=== PATIENT | male | born 1975 | race Two or more races ===

== ENCOUNTER 2017-10-15 16:10 | Emergency (ER) | payer OTHER, BC ==
--- NOTE | 2017-10-15 16:27 | EDM.PDOC ---
ED HPI GENERAL MEDICAL PROBLEM - General Chief Complaint: Eye Problems Stated Complaint: redness to left eye work related Time Seen by Provider: 10/15/17 16:27 Source of Information: Reports: Patient - History of Present Illness INITIAL COMMENTS - FREE TEXT/NARRATIVE: HISTORY AND PHYSICAL: History of present illness: [ Patient presents with irritated left eye, he was at work today including some trash to the been little wind blew some material up in his eye is uncertain what the material was or if it was dirt, however, is irritated he has no visual change such as blurred vision light sensitivity or double vision No fever nausea vomiting chills sweats ] Review of systems: As per history of present illness and below otherwise all systems reviewed and negative. Past medical history: As per history of present illness and as reviewed below otherwise noncontributory. Surgical history: As per history of present illness and as reviewed below otherwise noncontributory. Social history: No reported history of drug or alcohol abuse. Family history: As per history of present illness and as reviewed below otherwise noncontributory. Physical exam: HEENT: Atraumatic, normocephalic, pupils reactive, negative for conjunctival pallor or scleral icterus, mucous membranes moist, throat clear, neck supple, nontender, trachea midline. Left eye sclera is injected with Wood's lamp floors in there is an abrasion at 9 :00 however no foreign body is appreciated lid retracted no foreign body no hyphema, right eye is within normal limits Lungs: Clear to auscultation, breath sounds equal bilaterally, chest nontender. Heart: S1S2, regular, negative for clicks, rubs, or JVD. Abdomen: Soft, nondistended, nontender. Negative for masses or hepatosplenomegaly. Negative for costovertebral tenderness. Pelvis: Stable nontender. Genitourinary: Deferred. Rectal: Deferred. Extremities: Atraumatic, negative for cords or calf pain. Neurovascular unremarkable. Neuro: Awake, alert, oriented. Cranial nerves II through XII unremarkable. Cerebellum unremarkable. Motor and sensory unremarkable throughout. Exam nonfocal. Diagnostics: [Wood's lamp florosine ] Therapeutics: [Gent ophthalmic] Impression: [Corneal abrasion] Definitive disposition and diagnosis as appropriate pending reevaluation and review of above. - Related Data Allergies Allergy/AdvReac Type Severity Reaction Status Date / Time No Known Allergies Allergy Verified 10/15/17 16:23 Home Meds: Home Meds Atenolol [Atenolol] 10/15/17 [History] Pravastatin [Pravachol] 10/15/17 [History] ED ROS GENERAL - Review of Systems Review Of Systems: ROS reveals no pertinent complaints other than HPI. ED EXAM GENERAL W FULL EYE - Physical Exam Exam: See Below Course - Vital Signs Last Recorded V/S: Last Vital Signs Temp 97 F 10/15/17 16:24 Pulse 73 10/15/17 16:24 Resp 20 10/15/17 16:24 BP 140/97 H 10/15/17 16:24 Pulse Ox 99 10/15/17 16:24 Departure - Departure Time of Disposition: 16:52 Disposition: Home, Self-Care 01 Condition: Good Clinical Impression: Conjunctivitis - Discharge Information Referrals: PCP,None [Primary Care Provider] - Forms: ED Department Discharge Additional Instructions: The following information is given to patients seen in the emergency department who are being discharged to home. This information is to outline your options for follow-up care. We provide all patients seen in our emergency department with a follow-up referral. The need for follow-up, as well as the timing and circumstances, are variable depending upon the specifics of your emergency department visit. If you don't have a primary care physician on staff, we will provide you with a referral. We always advise you to contact your personal physician following an emergency department visit to inform them of the circumstance of the visit and for follow-up with them and/or the need for any referrals to a consulting specialist. The emergency department will also refer you to a specialist when appropriate. This referral assures that you have the opportunity for follow-up care with a specialist. All of these measure are taken in an effort to provide you with optimal care, which includes your follow-up. Under all circumstances we always encourage you to contact your private physician who remains a resource for coordinating your care. When calling for follow-up care, please make the office aware that this follow-up is from your recent emergency room visit. If for any reason you are refused follow-up, please contact the [facility] emergency department at and asked to speak to the emergency department charge nurse.
== END 2017-10-15 17:01 | disposition home or self-care (01) ==
LOC: MW.ED 16:10
DX: H10.9 Unspecified conjunctivitis (principal); S05.02XA Injury of conjunctiva and corneal abrasion without foreign body, left eye, initial encounter; W20.8XXA Other cause of strike by thrown, projected or falling object, initial encounter
CPT/HCPCS: 99283

== ENCOUNTER 2020-08-26 20:17 | Emergency (ER) | payer BC ==
--- NOTE | 2020-08-26 20:31 | EDM.PDOC ---
ED HPI GENERAL MEDICAL PROBLEM - General Chief Complaint: Chest Pain Stated Complaint: SOB Time Seen by Provider: 08/26/20 20:21 - History of Present Illness INITIAL COMMENTS - FREE TEXT/NARRATIVE: History of present illness: [] 45-year-old began to have fever 2 days ago. Gradually since then he has had increased trouble breathing. He has fever shortness of breath and now pain in the left hip. The patient was tested for Covid and the test turned out negative. He has a history of asthma. He has fever as well as this hip pain and shortness of breath. He is bothered by cough as well. Review of systems: As per history of present illness and below otherwise all systems reviewed and negative. Past medical history: As per history of present illness and as reviewed below otherwise noncontributory. Surgical history: As per history of present illness and as reviewed below otherwise noncontributory. Social history: No reported history of drug or alcohol abuse. Family history: As per history of present illness and as reviewed below otherwise noncontributory. Physical exam: Constitutional - well developed, well-nourished and in no acute distress HEENT - normocephalic, no evidence of trauma - external nose and mouth normal - no mass in neck and no JVD - mucosae moist EYES - full EOM, PERRL, no icterus - no evidence of inflammation, injection, or drainage Respiratory - no respiratory distress, equal bilateral expansion, lungs are except for rales in the lower half of the posterior right lung field. Cardiovascular - Regular Rhythm with S1 and S2 appreciated and no murmur, gallop or rub. GI - abdomen soft without distension or organomegaly - normal bowel sounds - no guard or rebound Musculoskeletal no gross deformity of long bones or joints - no tenderness, swelling or edema Neurologic - Alert and oriented times four - CN II-XII grossly intact - motor sensory and coordination symmetrically normal Psychiatric - appropriate mood and affect with normal thought content Hematologic - No petechiae or purpura - mucosa appropriate color and sclera not pale - normal nail bed color and refill Integument - no rash or evidence of trauma - normal turgor Diagnostics: [] Therapeutics: [] Impression: [] Plan: [] Definitive disposition and diagnosis as appropriate pending reevaluation and review of above. Chest Pain Score (Numeric/FACES): 7 - Related Data Allergies Allergy/AdvReac Type Severity Reaction Status Date / Time No Known Allergies Allergy Verified 08/26/20 20:28 Home Meds: Home Meds Pravastatin [Pravachol] 10/15/17 [History] atenoloL [Atenolol] 10/15/17 [History] Amoxicillin 1,000 mg PO Q8HR #60 capsule 08/26/20 [Rx] Doxycycline [Vibra-Tabs] 100 mg PO Q12HR #20 tab 08/26/20 [Rx] Past Medical History Cardiovascular History: Reports: High Cholesterol, Hypertension - Infectious Disease History Infectious Disease History: Reports: Chicken Pox, Measles, Mumps, TB - Past Surgical History HEENT Surgical History: Reports: Other (See Below) Other HEENT Surgeries/Procedures: Right eye surgery Social & Family History - Family History Family Medical History: No Pertinent Family History ED ROS GENERAL - Review of Systems Review Of Systems: Comprehensive ROS is negative, except as noted in HPI. ED EXAM, GENERAL - Physical Exam Exam: See Below Free Text/Narrative:: My physical exam is in the HPI #1 Interpretation EKG Interpretation Comments: KG sinus tachycardia heart rate 102 [place] 83 SC interval 149 QT 439 borderline T wave abnormality but QRS ST and T otherwise essentially within normal limits. Compared to no significant change except rate impression tachycardia while receiving beta agonist for rhonchal spasm. No acute injury Course - Vital Signs Text/Narrative:: 2147 patient is not oxygen dependent. He is feels like he is breathing shallow but he has good air exchange. Patient will be sent home with his inhaler as well as antibiotics. Last Recorded V/S: Last Vital Signs Temp 38.3 C H 08/26/20 20:28 Pulse 107 H 08/26/20 21:30 Resp 16 08/26/20 21:30 BP 144/100 H 08/26/20 21:30 Pulse Ox 95 08/26/20 21:30 - Orders/Labs/Meds Orders: Active Orders 24 hr Category Date Time Status EKG Documentation Completion [RC] AM Care 08/26/20 20:42 Active RT Post Treatment Assessment [RC] Click to Edit Care 08/26/20 20:45 Active RT Pre-Treatment Assessment [RC] Click to Edit Care 08/26/20 20:45 Active Sodium Chloride 0.9% [Saline Flush] Med 08/26/20 20:42 Active 10 ml FLUSH ASDIRECTED PRN Sodium Chloride 0.9% [Saline Flush] Med 08/26/20 20:42 Active 2.5 ml FLUSH ASDIRECTED PRN cefTRIAXone [Rocephin in Dextrose,Iso-Osm 1 GM/50 ML] 1 Med 08/26/20 22:15 Active gm Premix Bag 1 bag IV ONETIME Saline Lock Insert [OM.PC] Stat Oth 08/26/20 20:42 Ordered Medication Orders Ceftriaxone Sodium/Dextrose 1 (gm/ Premix) 50 mls @ 100 mls/hr IV ONETIME ONE Stop: 08/26/20 22:44 Last Admin: 08/26/20 22:17 Dose: 100 mls/hr Documented by: BREWKRI Sodium Chloride (Saline Flush) 10 ml FLUSH ASDIRECTED PRN PRN Reason: Keep Vein Open Sodium Chloride (Saline Flush) 2.5 ml FLUSH ASDIRECTED PRN PRN Reason: Keep Vein Open Labs: Laboratory Tests 08/26/20 08/26/20 08/26/20 Range/Units 20:40 20:40 20:45 WBC 6.66 (4.0-11.0) K/uL RBC 5.11 (4.50-5.90) M/uL Hgb 14.9 (13.0-17.0) g/dL Hct 43.7 (38.0-50.0) % MCV 85.5 (80.0-98.0) fL MCH 29.2 (27.0-32.0) pg MCHC 34.1 (31.0-37.0) g/dL RDW Std Deviation 40.1 (28.0-62.0) fl RDW Coeff of Antonietta 13 (11.0-15.0) % Plt Count 160 (150-400) K/uL MPV 10.50 (7.40-12.00) fL Neut % (Auto) 80.6 H (48.0-80.0) % Lymph % (Auto) 9.3 L (16.0-40.0) % [place] % (Auto) 9.3 (0.0-15.0) % Eos % (Auto) 0.6 (0.0-7.0) % Baso % (Auto) 0.2 (0.0-1.5) % Neut # (Auto) 5.4 (1.4-5.7) K/uL Lymph # (Auto) 0.6 (0.6-2.4) K/uL [place] # (Auto) 0.6 (0.0-0.8) K/uL Eos # (Auto) 0.0 (0.0-0.7) K/uL Baso # (Auto) 0.0 (0.0-0.1) K/uL Nucleated RBC % 0.0 /100WBC Nucleated RBCs # 0 K/uL Sodium 136 (136-148) mmol/L Potassium 3.9 (3.5-5.1) mmol/L Chloride 101 (98-107) mmol/L Carbon Dioxide 23.6 (21.0-32.0) mmol/L BUN 17 (7.0-18.0) mg/dL Creatinine 1.4 H (0.8-1.3) mg/dL Est Cr Clr Drug Dosing 57.35 mL/min Estimated GFR (MDRD) 54.6 ml/min Glucose 143 H (74-106) mg/dL Calcium 9.0 (8.5-10.1) mg/dL Total Bilirubin 0.5 (0.2-1.0) mg/dL AST 58 H (15-37) IU/L ALT 56 (14-63) IU/L Alkaline Phosphatase 53 (46-116) U/L Total Protein 8.2 (6.4-8.2) g/dL Albumin 3.9 (3.4-5.0) g/dL Globulin 4.3 H (2.6-4.0) g/dL Albumin/Globulin Ratio 0.9 (0.9-1.6) Influenza Type A RNA NEGATIVE (NEGATIVE) Influenza Type B RNA NEGATIVE (NEGATIVE) SARS-CoV-2 RNA (RHIANNA) NEGATIVE (NEGATIVE) Meds: Medications Generic Name Dose Route Start Last Admin Trade Name Freq PRN Reason Stop Dose Admin Ceftriaxone Sodium/Dextrose 1 50 mls @ 100 mls/hr 08/26/20 22:15 08/26/20 22:17 gm/ Premix IV 08/26/20 22:44 100 mls/hr ONETIME ONE Administration Sodium Chloride 10 ml 08/26/20 20:42 Saline Flush FLUSH ASDIRECTED PRN Keep Vein Open Sodium Chloride 2.5 ml 08/26/20 20:42 Saline Flush FLUSH ASDIRECTED PRN Keep Vein Open Discontinued Medications Generic Name Dose Route Start Last Admin Trade Name Sea PRN Reason Stop Dose Admin Albuterol 18 gm 08/26/20 20:44 08/26/20 21:02 Ventolin Hfa INH 08/26/20 20:45 2 inhalation STAT STA Administration Doxycycline Hyclate 100 mg 08/26/20 22:07 08/26/20 22:14 Vibramycin PO 08/26/20 22:08 100 mg ONETIME ONE Administration Ceftriaxone Sodium 1 gm/ 50 mls @ 100 mls/hr 08/26/20 21:35 08/26/20 22:15 Sodium Chloride IV 08/26/20 22:04 Not Given ONETIME ONE Ceftriaxone Sodium/Dextrose Confirm 08/26/20 22:11 08/26/20 22:16 Rocephin In Dextrose,Iso-Osm 1 Gm/50 Ml Administered 08/26/20 22:12 Not Given Dose 50 mls @ as directed .ROUTE .STK-MED ONE Departure - Departure Time of Disposition: 22:41 Disposition: Home, Self-Care 01 Condition: Good Clinical Impression: Right lower lobe pneumonia - Discharge Information Prescriptions: Amoxicillin 1,000 mg PO Q8HR #60 capsule Doxycycline [Vibra-Tabs] 100 mg PO Q12HR #20 tab Instructions: Community-Acquired Pneumonia, Adult Referrals: PCP,None [Primary Care Provider] - Forms: ED Department Discharge Additional Instructions: Use the inhaler with the extension device every 4 hours as needed. 2 puffs would be your dose. If you get worse return to the emergency department. Your antibiotics were sent to the [facility] [place] pharmacy. [facility] [address] [place] [address] [id number] [address] [address] The following information is given to patients seen in the emergency department who are being discharged to home. This information is to outline your options for follow-up care. We provide all patients seen in our emergency department with a follow-up referral. The need for follow-up, as well as the timing and circumstances, are variable depending upon the specifics of your emergency department visit. If you don't have a primary care physician on staff, we will provide you with a referral. We always advise you to contact your personal physician following an emergency department visit to inform them of the circumstance of the visit and for follow-up with them and/or the need for any referrals to a consulting specialist. The emergency department will also refer you to a specialist when appropriate. This referral assures that you have the opportunity for follow-up care with a specialist. All of these measure are taken in an effort to provide you with optimal care, which includes your follow-up. Under all circumstances we always encourage you to contact your private physician who remains a resource for coordinating your care. When calling for follow-up care, please make the office aware that this follow-up is from your recent emergency room visit. If for any reason you are refused follow-up, please contact the [facility] Emergency Department at and asked to speak to the emergency department charge nurse. Sepsis Event Note (ED) - Focused Exam Vital Signs: Vital Signs Temp Pulse Resp BP Pulse Ox 08/26/20 21:30 107 H 16 144/100 H 95 08/26/20 20:28 38.3 C H 95 20 144/90 H 96 - My Orders Last 24 Hours: My Active Orders 08/26/20 20:42 EKG Documentation Completion [RC] AM Sodium Chloride 0.9% [Saline Flush] 10 ml FLUSH ASDIRECTED PRN Sodium Chloride 0.9% [Saline Flush] 2.5 ml FLUSH ASDIRECTED PRN Saline Lock Insert [OM.PC] Stat 08/26/20 20:45 RT Post Treatment Assessment [RC] Click to Edit RT Pre-Treatment Assessment [RC] Click to Edit 08/26/20 22:15 cefTRIAXone [Rocephin in Dextrose,Iso-Osm 1 GM/50 ML] 1 gm Premix Bag 1 bag IV ONETIME - Assessment/Plan Last 24 Hours: My Active Orders 08/26/20 20:42 EKG Documentation Completion [RC] AM Sodium Chloride 0.9% [Saline Flush] 10 ml FLUSH ASDIRECTED PRN Sodium Chloride 0.9% [Saline Flush] 2.5 ml FLUSH ASDIRECTED PRN Saline Lock Insert [OM.PC] Stat 08/26/20 20:45 RT Post Treatment Assessment [RC] Click to Edit RT Pre-Treatment Assessment [RC] Click to Edit 08/26/20 22:15 cefTRIAXone [Rocephin in Dextrose,Iso-Osm 1 GM/50 ML] 1 gm Premix Bag 1 bag IV ONETIME
[2020-08-26] MEDS ORDERED: Sodium Chloride 0.9% 10 ML Syringe FLUSH PRN (20:42)
[2020-08-26] MEDS ORDERED: Sodium Chloride 0.9% 2.5 ML Syringe FLUSH PRN (20:42)
[2020-08-26] MEDS ORDERED: Albuterol HFA 18 Gm Inhaler INH STA (20:44)
--- NOTE | 2020-08-26 21:11 | CR ---
HISTORY: Shortness of breath, fever, rales in the right lung base. COMPARISON: 03/09/2017. FINDINGS: A portable erect AP view of the chest was obtained at 20 56 hours. There is mild patchy infiltrate throughout the lateral portion of the right lower lung, probably an area of early pneumonia. In the appropriate clinical setting, this could be COVID-19 infection. The rest of the chest remains clear. The heart has increased in size but remains normal in size. The mediastinum is normal in appearance. The osseous structures are normal in appearance for the patient`s age. IMPRESSION: Mild patchy infiltrate throughout the lateral portion of the right lower lung, probably pneumonia. Cannot exclude COVID-19 pneumonia. Dictated by Donato Hickman MD @ Aug 26 2020 9:08PM Signed by Dr. Donato Hickman @ Aug 26 2020 9:10PM
[2020-08-26 21:14] LABS: CARBON DIOXIDE,CO2 23.6 mmol/L (21.0-32.0); POTASSIUM,K 3.9 mmol/L (3.5-5.1)
[2020-08-26 21:30] LABS: CORONAVIRUS COVID-19 NAA NEGATIVE (NEGATIVE); INFLUENZA A NAA NEGATIVE (NEGATIVE); INFLUENZA B NAA NEGATIVE (NEGATIVE)
[2020-08-26] MEDS ORDERED: cefTRIAXone 1 GM in Sodium Chloride 0.9% 50 ML IV ONE (21:35)
[2020-08-26] MEDS ORDERED: Doxycycline 100 MG Cap PO ONE (22:07)
[2020-08-26] MEDS ORDERED: cefTRIAXone 1 GM in Premix Bag 1 BAG IV ONE (22:15)
== END 2020-08-26 23:10 | disposition home or self-care (01) ==
LOC: MW.ED 20:17
DX: J18.9 Pneumonia, unspecified organism (principal); M25.552 Pain in left hip; I10 Essential (primary) hypertension; Z20.828 Contact with and (suspected) exposure to other viral communicable diseases
CPT/HCPCS: 0240U; 36415; 71045; 80053; 85025; 93005; 96365; 99285; A9270; J0696; 93010; 99283; J3535-GY

== ENCOUNTER 2020-08-28 14:12 | Inpatient (IN) | payer BC ==
[2020-08-28 15:18] LABS: CORONAVIRUS COVID-19 NAA NEGATIVE (NEGATIVE)
--- NOTE | 2020-08-28 15:35 | CR ---
HISTORY: Dyspnea COMPARISON: 08/26/2020 FINDINGS: A portable erect AP view of the chest was obtained at 1443 hours. There is marked progression of interstitial infiltrates in both lungs, more prominent on the right, worrisome for COVID-19 infection or other multifocal pneumonia. The previously seen mild patchy right lower lung infiltrate has become moderate, and has become significantly denser in the infrahilar region. New moderate patchy ground-glass infiltrate in the right superior perihilar region, with new mild streaky infiltrate in the left mid perihilar region. No sign of any pleural effusion. The heart remains normal in size. The mediastinum is normal in appearance. The osseous structures are normal in appearance for the patient`s age. IMPRESSION: Progression of right lower lung infiltrate, now moderate, with new moderate right superior perihilar and mild left mid perihilar infiltrates. Findings consistent with progressive multifocal pneumonia, consider COVID-19. Dictated by Donato Hickman MD @ Aug 28 2020 3:31PM Signed by Dr. Donato Hickman @ Aug 28 2020 3:34PM
[2020-08-28 15:49] LABS: BLOOD UREA NITROGEN,BUN 11 mg/dL (7.0-18.0); CARBON DIOXIDE,CO2 23.8 mmol/L (21.0-32.0); CHLORIDE,CL 99 mmol/L (98-107); GLUCOSE RANDOM 145 mg/dL (74-106); POTASSIUM,K 3.7 mmol/L (3.5-5.1); SODIUM,NA 138 mmol/L (136-148)
[2020-08-28 16:44] LABS: INFLUENZA A NAA NEGATIVE (NEGATIVE); INFLUENZA B NAA NEGATIVE (NEGATIVE)
[2020-08-28] MEDS ORDERED: Lactated Ringers 1,000 ML IV ONE ×2 (16:48→21:05)
[2020-08-28] MEDS ORDERED: Piperacillin/Tazobactam 3.375 GM in Sodium Chloride 0.9% 50 ML IV SCH (17:00)
--- NOTE | 2020-08-28 17:26 | PCM.HP.2 ---
H&P History of Present Illness - General Date of Service: 08/28/20 Admit Problem/Dx: Admission Diagnosis/Problem Admission Diagnosis/Problem Pneumonia - History of Present Illness Initial Comments - Free Text/Narative: 45-year-old M with PMH of HTN, HLD, Asthma comes in from respiratory clinic as a direct admit. Patient states that he started feeling unwell on Wednesday when he developed high fevers at home, he was having some trouble breathing and cough so he went to ER on 08/26, when he was diagnosed with Pneumonia based on xray, COVID was negative, he was sent home on antibiotics, but continued to get worse, he came to the clinic today and was found to be hypoxic during ambulation to low 90s. Per his his sats have been in high 80s sometimes. Work up reveled worsening pneumonia, CXR appeared to be consistent with COVID_19 but the testing was negative. Patients labs reveled he had high WBC count, vitals were significant for fever of 102, his BP was acceptable. Patient also has left hip which he says he sometimes gets due to "arthritis" but was unable to tell me which type of arthritis. The patient was tested for Covid and the test turned out negative. Patient was admitted for further management. 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 - Related Data Allergies/Adverse Reactions: Allergies Allergy/AdvReac Type Severity Reaction Status Date / Time No Known Allergies Allergy Verified 08/28/20 18:51 Home Medications: Home Meds atenoloL [Atenolol] 25 mg PO DAILY 10/15/17 [History] Amoxicillin 1,000 mg PO Q8HR #60 capsule 08/26/20 [Rx] Doxycycline [Vibra-Tabs] 100 mg PO Q12HR #20 tab 08/26/20 [Rx] Losartan [Cozaar] 50 mg PO DAILY 08/31/20 [History] Rosuvastatin Calcium 20 mg PO BEDTIME 08/31/20 [History] Past Medical History HEENT History: Reports: Impaired Vision, Sinusitis Cardiovascular History: Reports: High Cholesterol, Hypertension Respiratory History: Reports: Asthma Other Respiratory History: Asthma as a child. Musculoskeletal History: Reports: Arthritis, Gout Dermatologic History: Reports: None - Infectious Disease History Infectious Disease History: Reports: Chicken Pox, Influenza, Measles, Mumps, TB - Past Surgical History HEENT Surgical History: Reports: Other (See Below) Other HEENT Surgeries/Procedures: Right eye surgery GI Surgical History: Reports: None Endocrine Surgical History: Reports: None Neurological Surgical History: Reports: None Social & Family History - Family History Family Medical History: No Pertinent Family History - Caffeine Use Caffeine Use: Reports: None H&P Review of Systems - Review of Systems: Review Of Systems: See Below General: Reports: Fever, Chills, Weakness, Fatigue. Denies: Night Sweats Pulmonary: Reports: Shortness of Breath, Cough. Denies: Wheezing, Sputum Cardiovascular: Reports: Dyspnea on Exertion. Denies: Chest Pain, Palpitations, Orthopnea Gastrointestinal: Reports: Anorexia. Denies: Abdominal Pain, Black Stool, Bloody Stool, Constipation, Diarrhea Genitourinary: Denies: Dysuria, Frequency, Burning Musculoskeletal: Denies: Neck Pain, Shoulder Pain, Arm Pain, Back Pain Skin: Denies: Cyanosis, Jaundice, Mottled, Pallor Psychiatric: Denies: Confusion, Depression, Mood Lability, Anxiety Neurological: Denies: Confusion, Dizziness, Headache, Numbness Exam - Exam Exam: See Below - Vital Signs Vital Signs: Last Vital Signs Temp 37.3 C 08/28/20 17:02 Pulse 103 H 08/28/20 17:02 Resp 20 08/28/20 17:02 BP 143/79 H 08/28/20 17:02 Pulse Ox 97 08/28/20 17:02 - Exam Quality Assessment: Supplemental Oxygen General: Alert, Oriented, Moderate Distress Neck: Supple Lungs: Decreased Breath Sounds, Crackles Cardiovascular: Regular Rate, Regular Rhythm, Normal S1, Normal S2 GI/Abdominal Exam: Normal Bowel Sounds, Soft, Non-Tender Back Exam: Normal Inspection, Decreased Range of Motion, Other (left hip discomfort upon flexion ) Extremities: Normal Inspection, Normal Range of Motion, Non-Tender, No Pedal E jimmy Skin: Warm, Dry - Patient Data Lab Results Last 24 hrs: Laboratory Results - last 24 hr 08/28/20 08/28/20 08/28/20 Range/Units 14:10 14:50 14:50 WBC 14.45 H (4.0-11.0) K/uL RBC 4.82 (4.50-5.90) M/uL Hgb 13.6 (13.0-17.0) g/dL Hct 41.4 (38.0-50.0) % MCV 85.9 (80.0-98.0) fL MCH 28.2 (27.0-32.0) pg MCHC 32.9 (31.0-37.0) g/dL RDW Std Deviation 40.9 (28.0-62.0) fl RDW Coeff of Antonietta 13 (11.0-15.0) % Plt Count 193 (150-400) K/uL MPV 10.30 (7.40-12.00) fL Neut % (Auto) 90.3 H (48.0-80.0) % Lymph % (Auto) 5.1 L (16.0-40.0) % Hand % (Auto) 4.5 (0.0-15.0) % Eos % (Auto) 0.0 (0.0-7.0) % Baso % (Auto) 0.1 (0.0-1.5) % Neut # (Auto) 13.1 H (1.4-5.7) K/uL Lymph # (Auto) 0.7 (0.6-2.4) K/uL Hand # (Auto) 0.7 (0.0-0.8) K/uL Eos # (Auto) 0.0 (0.0-0.7) K/uL Baso # (Auto) 0.0 (0.0-0.1) K/uL Nucleated RBC % 0.0 /100WBC Nucleated RBCs # 0 K/uL D-Dimer, Quantitative (0.0-0.50) mg/L FEU Lactate (0.20-2.00) mmol/L Sodium 138 (136-148) mmol/L Potassium 3.7 (3.5-5.1) mmol/L Chloride 99 (98-107) mmol/L Carbon Dioxide 23.8 (21.0-32.0) mmol/L BUN 11 (7.0-18.0) mg/dL Creatinine 1.3 (0.8-1.3) mg/dL Est Cr Clr Drug Dosing TNP Estimated GFR (MDRD) 59.4 ml/min Glucose 145 H (74-106) mg/dL Calcium 9.2 (8.5-10.1) mg/dL Total Bilirubin 0.6 (0.2-1.0) mg/dL AST 58 H (15-37) IU/L ALT 67 H (14-63) IU/L Alkaline Phosphatase 57 (46-116) U/L Total Protein 7.6 (6.4-8.2) g/dL Albumin 3.7 (3.4-5.0) g/dL Globulin 3.9 (2.6-4.0) g/dL Albumin/Globulin Ratio 0.9 (0.9-1.6) Influenza Type A RNA NEGATIVE (NEGATIVE) Influenza Type B RNA NEGATIVE (NEGATIVE) SARS-CoV-2 RNA (RHIANNA) NEGATIVE (NEGATIVE) 08/28/20 08/28/20 Range/Units 14:50 14:50 WBC (4.0-11.0) K/uL RBC (4.50-5.90) M/uL Hgb (13.0-17.0) g/dL Hct (38.0-50.0) % MCV (80.0-98.0) fL MCH (27.0-32.0) pg MCHC (31.0-37.0) g/dL RDW Std Deviation (28.0-62.0) fl RDW Coeff of Antonietta (11.0-15.0) % Plt Count (150-400) K/uL MPV (7.40-12.00) fL Neut % (Auto) (48.0-80.0) % Lymph % (Auto) (16.0-40.0) % Hand % (Auto) (0.0-15.0) % Eos % (Auto) (0.0-7.0) % Baso % (Auto) (0.0-1.5) % Neut # (Auto) (1.4-5.7) K/uL Lymph # (Auto) (0.6-2.4) K/uL Hand # (Auto) (0.0-0.8) K/uL Eos # (Auto) (0.0-0.7) K/uL Baso # (Auto) (0.0-0.1) K/uL Nucleated RBC % /100WBC Nucleated RBCs # K/uL D-Dimer, Quantitative 1.06 H (0.0-0.50) mg/L FEU Lactate 1.8 (0.20-2.00) mmol/L Sodium (136-148) mmol/L Potassium (3.5-5.1) mmol/L Chloride (98-107) mmol/L Carbon Dioxide (21.0-32.0) mmol/L BUN (7.0-18.0) mg/dL Creatinine (0.8-1.3) mg/dL Est Cr Clr Drug Dosing Estimated GFR (MDRD) ml/min Glucose (74-106) mg/dL Calcium (8.5-10.1) mg/dL Total Bilirubin (0.2-1.0) mg/dL AST (15-37) IU/L ALT (14-63) IU/L Alkaline Phosphatase (46-116) U/L Total Protein (6.4-8.2) g/dL Albumin (3.4-5.0) g/dL Globulin (2.6-4.0) g/dL Albumin/Globulin Ratio (0.9-1.6) Influenza Type A RNA (NEGATIVE) Influenza Type B RNA (NEGATIVE) SARS-CoV-2 RNA (RHIANNA) (NEGATIVE) Result Diagrams: 09/01/20 06:15 09/01/20 06:15 Sepsis Event Note - Focused Exam Vital Signs: Vital Signs Temp Pulse Resp BP Pulse Ox 08/28/20 17:02 37.3 C 103 H 20 143/79 H 97 - Problem List (1) Hypoxia SNOMED Code(s): 861286994 ICD Code: R09.02 - HYPOXEMIA Status: Acute Current Visit: Yes (2) Pneumonia SNOMED Code(s): 740651873 ICD Code: J18.9 - PNEUMONIA, UNSPECIFIED ORGANISM Status: Acute Current Visit: Yes (3) Sepsis SNOMED Code(s): 44219013 ICD Code: A41.9 - SEPSIS, UNSPECIFIED ORGANISM Status: Acute Current Visit: No Problem List Initiated/Reviewed/Updated: Yes Orders Last 24hrs: Active Orders 24 hr Category Date Time Status Admission Status [Patient Status] [ADT] Routine ADT 08/28/20 17:23 Active Oxygen Therapy [RC] PRN Care 08/28/20 16:48 Active RT Post Treatment Assessment [RC] Click to Edit Care 08/28/20 16:53 Active RT Pre-Treatment Assessment [RC] Click to Edit Care 08/28/20 16:53 Active Telemetry Monitoring [Cardiac Monitoring] [RC] . Care 08/28/20 17:06 Active DIRECTED VTE/DVT Education [RC] PER UNIT ROUTINE Care 08/28/20 16:48 Active Vital Signs [RC] Q4H Care 08/28/20 16:48 Active Regular Diet [DIET] Diet 08/28/20 Dinner Active CBC WITH AUTO DIFF [HEME] AM Lab 08/29/20 05:11 Ordered CMP [COMPREHENSIVE METABOLIC PN,CMP] [CHEM] AM Lab 08/29/20 05:11 Ordered Acetaminophen [TylenoL] Med 08/28/20 16:50 Active 650 mg PO Q4H PRN Albuterol/Ipratropium [Combivent Respimat] Med 08/28/20 18:00 Active See Dose Instructions INH BID Enoxaparin [Lovenox] Med 08/28/20 18:00 Active 40 mg SUBCUT BID Lactated Ringers [Ringers, Lactated] 1,000 ml Med 08/28/20 16:48 Active IV BOLUS Pharmacy to Dose - Vancomycin Med 08/28/20 17:00 Pending 1 dose .XX ASDIRECTED Piperacillin/Tazobactam [Piperacil-Tazobact] 3.375 gm Med 08/28/20 17:00 Active Sodium Chloride 0.9% [Normal Saline] 50 ml IV Q8H Code Status [Resuscitation Status] Routine Resus Stat 08/28/20 17:22 Ordered Medication Orders Acetaminophen (Tylenol) 650 mg PO Q4H PRN PRN Reason: Pain/Fever Albuterol/Ipratropium (Combivent Respimat) 0 gm INH BID [facility] Enoxaparin Sodium (Lovenox) 40 mg SUBCUT BID [facility] Lactated Ringer's (Ringers, Lactated) 1,000 mls @ 999 mls/hr IV BOLUS ONE Stop: 08/28/20 17:48 Piperacillin Sod/Tazobactam (Sod 3.375 gm/ Sodium Chloride) 50 mls @ 100 mls/hr IV Q8H [facility] Vancomycin HCl (Pharmacy To Dose - Vancomycin) 1 dose .XX ASDIRECTED [facility] Assessment/Plan Comment:: 45 y/o M admitted for cough , SOB CXR significant for atypical pneumonia likely COVID -19 false negative, currently on 2lts sating 93% Will start broad spectrum antibiotics in light of sepsis obtain blood cultures, f/u on lactate 1 lt bolus of LR given have to be careful with fluids in light of possible COVID, for now will start on maintain fluids till sepsis resolves start dexamethasone, Remdesivir start Combivent start Tessalon pearls start Lovenox BID monitor and replete electrolytes
[2020-08-28] MEDS: Enoxaparin 40 MG/0.4 ML Syringe SUBCUT SCH ×2 (18:05→20:11)
[2020-08-28] MEDS ORDERED: REMDESIVIR 200 MG in Sodium Chloride 0.9% 250 ML IV ONE (19:47)
[2020-08-28] MEDS ORDERED: Azithromycin 500 MG in Sodium Chloride 0.9% 250 ML IV SCH (20:00)
[2020-08-28] MEDS: Acetaminophen 325 MG Tab PO PRN (20:11)
[2020-08-28] MEDS: Albuterol/Ipratropium 4 GM Inhalation Spray INH SCH ×2 (20:11→20:31)
[2020-08-28] MEDS: Piperacillin/Tazobactam 3.375 GM in Sodium Chloride 0.9% 50 ML IV SCH (20:12)
[2020-08-28] MEDS ORDERED: Enoxaparin 40 MG/0.4 ML Syringe SUBCUT SCH (21:00)
[2020-08-28] MEDS ORDERED: Albuterol/Ipratropium 4 GM Inhalation Spray INH PRN (21:03)
[2020-08-28] MEDS ORDERED: Lactated Ringers 1,000 ML IV SCH (21:15)
[2020-08-28] MEDS: Codeine/guaiFENesin 10-100 MG/5 ML Syrup 5 ML Cup PO PRN (22:15)
[2020-08-28] MEDS: Dexamethasone 4 MG Tab PO SCH (22:18)
[2020-08-29] MEDS: Acetaminophen 325 MG Tab PO PRN ×2 (00:47→17:16)
[2020-08-29] MEDS: Benzonatate 100 MG Cap PO PRN ×2 (00:47→20:03)
[2020-08-29] MEDS: Piperacillin/Tazobactam 3.375 GM in Sodium Chloride 0.9% 50 ML IV SCH ×3 (04:55→20:01)
[2020-08-29 06:38] LABS: CARBON DIOXIDE,CO2 21.6 mmol/L (21.0-32.0); POTASSIUM,K 3.6 mmol/L (3.5-5.1)
[2020-08-29] MEDS: Enoxaparin 40 MG/0.4 ML Syringe SUBCUT SCH ×2 (08:14→20:02)
[2020-08-29] MEDS: Codeine/guaiFENesin 10-100 MG/5 ML Syrup 5 ML Cup PO PRN (08:14)
[2020-08-29] MEDS: Albuterol/Ipratropium 4 GM Inhalation Spray INH SCH ×2 (08:22→20:03)
--- NOTE | 2020-08-29 11:37 | PCM.PN ---
- General Info Date of Service: 08/29/20 Subjective Update: Patient states shortness of breath with exertion, and chills. Patient denies fever, abdominal pain, diarrhea. Patient states that he would like convalescent plasma therapy. - Review of Systems General: Reports: Chills. Denies: Fever Pulmonary: Reports: Shortness of Breath, Cough Cardiovascular: Denies: Chest Pain, Palpitations Gastrointestinal: Denies: Abdominal Pain, Nausea, Vomiting Neurological: Denies: Confusion, Dizziness, Headache - Patient Data Vitals - Most Recent: Last Vital Signs Temp 98.2 F 08/29/20 07:51 Pulse 85 08/29/20 07:51 Resp 18 08/29/20 07:51 BP 101/59 L 08/29/20 07:51 Pulse Ox 92 L 08/29/20 07:51 Weight - Most Recent: 165 lb 9.074 oz I&O - Last 24 Hours: Intake & Output 08/28/20 08/29/20 08/29/20 22:59 06:59 14:59 Intake Total 3650 Output Total 400 Balance 3250 Lab Results Last 24 Hours: Laboratory Results - last 24 hr 08/28/20 08/28/20 08/28/20 Range/Units 14:10 14:50 14:50 WBC 14.45 H (4.0-11.0) K/uL RBC 4.82 (4.50-5.90) M/uL Hgb 13.6 (13.0-17.0) g/dL Hct 41.4 (38.0-50.0) % MCV 85.9 (80.0-98.0) fL MCH 28.2 (27.0-32.0) pg MCHC 32.9 (31.0-37.0) g/dL RDW Std Deviation 40.9 (28.0-62.0) fl RDW Coeff of Antonietta 13 (11.0-15.0) % Plt Count 193 (150-400) K/uL MPV 10.30 (7.40-12.00) fL Neut % (Auto) 90.3 H (48.0-80.0) % Lymph % (Auto) 5.1 L (16.0-40.0) % [place] % (Auto) 4.5 (0.0-15.0) % Eos % (Auto) 0.0 (0.0-7.0) % Baso % (Auto) 0.1 (0.0-1.5) % Neut # (Auto) 13.1 H (1.4-5.7) K/uL Lymph # (Auto) 0.7 (0.6-2.4) K/uL [place] # (Auto) 0.7 (0.0-0.8) K/uL Eos # (Auto) 0.0 (0.0-0.7) K/uL Baso # (Auto) 0.0 (0.0-0.1) K/uL Nucleated RBC % 0.0 /100WBC Nucleated RBCs # 0 K/uL D-Dimer, Quantitative (0.0-0.50) mg/L FEU Lactate (0.20-2.00) mmol/L Sodium 138 (136-148) mmol/L Potassium 3.7 (3.5-5.1) mmol/L Chloride 99 (98-107) mmol/L Carbon Dioxide 23.8 (21.0-32.0) mmol/L BUN 11 (7.0-18.0) mg/dL Creatinine 1.3 (0.8-1.3) mg/dL Est Cr Clr Drug Dosing TNP Estimated GFR (MDRD) 59.4 ml/min Glucose 145 H (74-106) mg/dL Calcium 9.2 (8.5-10.1) mg/dL Total Bilirubin 0.6 (0.2-1.0) mg/dL AST 58 H (15-37) IU/L ALT 67 H (14-63) IU/L Alkaline Phosphatase 57 (46-116) U/L Total Protein 7.6 (6.4-8.2) g/dL Albumin 3.7 (3.4-5.0) g/dL Globulin 3.9 (2.6-4.0) g/dL Albumin/Globulin Ratio 0.9 (0.9-1.6) Influenza Type A RNA NEGATIVE (NEGATIVE) Influenza Type B RNA NEGATIVE (NEGATIVE) SARS-CoV-2 RNA (RHIANNA) NEGATIVE (NEGATIVE) 08/28/20 08/28/20 08/28/20 Range/Units 14:50 14:50 18:07 WBC (4.0-11.0) K/uL RBC (4.50-5.90) M/uL Hgb (13.0-17.0) g/dL Hct (38.0-50.0) % MCV (80.0-98.0) fL MCH (27.0-32.0) pg MCHC (31.0-37.0) g/dL RDW Std Deviation (28.0-62.0) fl RDW Coeff of Antonietta (11.0-15.0) % Plt Count (150-400) K/uL MPV (7.40-12.00) fL Neut % (Auto) (48.0-80.0) % Lymph % (Auto) (16.0-40.0) % [place] % (Auto) (0.0-15.0) % Eos % (Auto) (0.0-7.0) % Baso % (Auto) (0.0-1.5) % Neut # (Auto) (1.4-5.7) K/uL Lymph # (Auto) (0.6-2.4) K/uL [place] # (Auto) (0.0-0.8) K/uL Eos # (Auto) (0.0-0.7) K/uL Baso # (Auto) (0.0-0.1) K/uL Nucleated RBC % /100WBC Nucleated RBCs # K/uL D-Dimer, Quantitative 1.06 H (0.0-0.50) mg/L FEU Lactate 1.8 1.3 (0.20-2.00) mmol/L Sodium (136-148) mmol/L Potassium (3.5-5.1) mmol/L Chloride (98-107) mmol/L Carbon Dioxide (21.0-32.0) mmol/L BUN (7.0-18.0) mg/dL Creatinine (0.8-1.3) mg/dL Est Cr Clr Drug Dosing Estimated GFR (MDRD) ml/min Glucose (74-106) mg/dL Calcium (8.5-10.1) mg/dL Total Bilirubin (0.2-1.0) mg/dL AST (15-37) IU/L ALT (14-63) IU/L Alkaline Phosphatase (46-116) U/L Total Protein (6.4-8.2) g/dL Albumin (3.4-5.0) g/dL Globulin (2.6-4.0) g/dL Albumin/Globulin Ratio (0.9-1.6) Influenza Type A RNA (NEGATIVE) Influenza Type B RNA (NEGATIVE) SARS-CoV-2 RNA (RHIANNA) (NEGATIVE) 08/29/20 08/29/20 Range/Units 05:44 05:44 WBC 15.55 H (4.0-11.0) K/uL RBC 4.31 L (4.50-5.90) M/uL Hgb 12.1 L (13.0-17.0) g/dL Hct 37.0 L (38.0-50.0) % MCV 85.8 (80.0-98.0) fL MCH 28.1 (27.0-32.0) pg MCHC 32.7 (31.0-37.0) g/dL RDW Std Deviation 41.2 (28.0-62.0) fl RDW Coeff of Antonietta 13 (11.0-15.0) % Plt Count 200 (150-400) K/uL MPV 10.90 (7.40-12.00) fL Neut % (Auto) 92.7 H (48.0-80.0) % Lymph % (Auto) 5.1 L (16.0-40.0) % [place] % (Auto) 2.1 (0.0-15.0) % Eos % (Auto) 0.0 (0.0-7.0) % Baso % (Auto) 0.1 (0.0-1.5) % Neut # (Auto) 14.4 H (1.4-5.7) K/uL Lymph # (Auto) 0.8 (0.6-2.4) K/uL [place] # (Auto) 0.3 (0.0-0.8) K/uL Eos # (Auto) 0.0 (0.0-0.7) K/uL Baso # (Auto) 0.0 (0.0-0.1) K/uL Nucleated RBC % 0.0 /100WBC Nucleated RBCs # 0 K/uL D-Dimer, Quantitative (0.0-0.50) mg/L FEU Lactate (0.20-2.00) mmol/L Sodium 137 (136-148) mmol/L Potassium 3.6 (3.5-5.1) mmol/L Chloride 101 (98-107) mmol/L Carbon Dioxide 21.6 (21.0-32.0) mmol/L BUN 13 (7.0-18.0) mg/dL Creatinine 1.4 H (0.8-1.3) mg/dL Est Cr Clr Drug Dosing 57.35 Estimated GFR (MDRD) 54.6 ml/min Glucose 190 H (74-106) mg/dL Calcium 8.6 (8.5-10.1) mg/dL Total Bilirubin 0.5 (0.2-1.0) mg/dL AST 52 H (15-37) IU/L ALT 50 (14-63) IU/L Alkaline Phosphatase 51 (46-116) U/L Total Protein 7.0 (6.4-8.2) g/dL Albumin 2.8 L (3.4-5.0) g/dL Globulin 4.2 H (2.6-4.0) g/dL Albumin/Globulin Ratio 0.7 L (0.9-1.6) Influenza Type A RNA (NEGATIVE) Influenza Type B RNA (NEGATIVE) SARS-CoV-2 RNA (RHIANNA) (NEGATIVE) Med Orders - Current: Current Medications Acetaminophen (Tylenol) 650 mg PO Q4H PRN PRN Reason: Pain/Fever Last Admin: 08/29/20 00:47 Dose: 650 mg Documented by: Albuterol/Ipratropium (Combivent Respimat) 0 gm INH BID [facility] Last Admin: 08/29/20 08:22 Dose: 1 puff Documented by: Azithromycin (Zithromax) 250 mg PO Q24H [facility] Benzonatate (Tessalon Perles) 100 mg PO TID PRN PRN Reason: Cough Last Admin: 08/29/20 00:47 Dose: 100 mg Documented by: Dexamethasone (Dexamethasone) 6 mg PO DAILY@1800 [facility] Last Admin: 08/28/20 22:18 Dose: 6 mg Documented by: Enoxaparin Sodium (Lovenox) 40 mg SUBCUT BID [facility] Last Admin: 08/29/20 08:14 Dose: 40 mg Documented by: Guaifenesin/Codeine Phosphate (Robitussin Ac) 5 ml PO Q6H PRN PRN Reason: Cough Last Admin: 08/29/20 08:14 Dose: 5 ml Documented by: Piperacillin Sod/Tazobactam (Sod 3.375 gm/ Sodium Chloride) 50 mls @ 100 mls/hr IV Q8H [facility] Last Admin: 08/29/20 04:55 Dose: 100 mls/hr Documented by: Remdesivir 100 mg/ Sodium (Chloride) 100 mls @ 100 mls/hr IV Q24H [facility] Stop: 09/01/20 18:59 Azithromycin 500 mg/ Sodium (Chloride) 250 mls @ 250 mls/hr IV ONETIME [facility] Lactated Ringer's (Ringers, Lactated) 1,000 mls @ 125 mls/hr IV ASDIRECTED [facility] Last Admin: 08/28/20 22:19 Dose: 125 mls/hr Documented by: Vancomycin HCl 1 gm/ Sodium (Chloride) 250 mls @ 166 mls/hr IV Q12H [facility] Last Admin: 08/29/20 08:13 Dose: 166 mls/hr Documented by: Vancomycin HCl (Pharmacy To Dose - Vancomycin) 1 dose .XX ASDIRECTED [facility] Discontinued Medications Albuterol/Ipratropium (Combivent Respimat) 0 gm INH Q4H PRN PRN Reason: Dyspnea Enoxaparin Sodium (Lovenox) 40 mg SUBCUT BID [facility] Lactated Ringer's (Ringers, Lactated) 1,000 mls @ 999 mls/hr IV BOLUS ONE Stop: 08/28/20 17:48 Last Admin: 08/28/20 18:04 Dose: 999 mls/hr Documented by: Piperacillin Sod/Tazobactam (Sod 3.375 gm/ Sodium Chloride) 50 mls @ 100 mls/hr IV Q8H [facility] Last Admin: 08/28/20 19:09 Dose: Not Given Documented by: Vancomycin HCl 1.5 gm/ Premix 300 mls @ 300 mls/hr IV ONETIME ONE Stop: 08/28/20 20:14 Last Admin: 08/28/20 20:13 Dose: 300 mls/hr Documented by: Remdesivir 200 mg/ Sodium (Chloride) 250 mls @ 250 mls/hr IV ONETIME ONE Stop: 08/28/20 19:48 Last Admin: 08/28/20 22:18 Dose: 250 mls/hr Documented by: Lactated Ringer's (Ringers, Lactated) 1,000 mls @ 999 mls/hr IV .BOLUS ONE Stop: 08/28/20 22:05 Last Admin: 08/28/20 21:44 Dose: 999 mls/hr Documented by: - Exam Quality Assessment: Supplemental Oxygen General: Alert, Oriented Lungs: Clear to Auscultation, Normal Respiratory Effort Cardiovascular: Regular Rate, Regular Rhythm GI/Abdominal Exam: Normal Bowel Sounds, Soft, Non-Tender Extremities: No Pedal Edema Psy/Mental Status: Alert Sepsis Event Note - Evaluation Sepsis Screening Result: No Definite Risk - Focused Exam Vital Signs: Vital Signs Temp Temp Pulse Resp BP BP Pulse Ox 08/29/20 07:51 98.2 F 85 18 101/59 L 92 L 08/29/20 04:00 97.1 F 98 20 131/84 93 L 08/29/20 01:59 97.5 F 08/29/20 00:47 102.5 F H - Problem List & Annotations (1) Pneumonia SNOMED Code(s): 549694481 Code(s): J18.9 - PNEUMONIA, UNSPECIFIED ORGANISM Status: Acute Current Visit: Yes (2) Sepsis SNOMED Code(s): 78128049 Code(s): A41.9 - SEPSIS, UNSPECIFIED ORGANISM Status: Acute Current Visit: No - Problem List Review Problem List Initiated/Reviewed/Updated: Yes - My Orders Last 24 Hours: My Active Orders 08/28/20 16:48 Oxygen Therapy [RC] PRN VTE/DVT Education [RC] Q12H Vital Signs [RC] Q4H 08/28/20 16:50 Acetaminophen [TylenoL] 650 mg PO Q4H PRN 08/28/20 16:53 RT Post Treatment Assessment [RC] Click to Edit RT Pre-Treatment Assessment [RC] Click to Edit 08/28/20 17:00 Pharmacy to Dose - Vancomycin 1 dose .XX ASDIRECTED 08/28/20 17:06 Telemetry Monitoring [Cardiac Monitoring] [RC] Q8H 08/28/20 17:22 Code Status [Resuscitation Status] Routine 08/28/20 18:00 Albuterol/Ipratropium [Combivent Respimat] See Dose Instructions INH BID Enoxaparin [Lovenox] 40 mg SUBCUT BID 08/28/20 20:00 Piperacillin/Tazobactam [Piperacil-Tazobact] 3.375 gm Sodium Chloride 0.9% [Normal Saline] 50 ml IV Q8H 08/29/20 08:00 Vancomycin [Vancocin] 1 gm Sodium Chloride 0.9% [Normal Saline (AdvBag)] 250 ml IV Q12H - Plan Plan:: COVID-19 Testing was negative but chest x-ray findings are suggestive for Covid infection. Patient has known Covid exposure to individuals at work. Patient is currently requiring 4 L oxygen support nasal cannula. Remdesivir, dexamethasone, Combivent, Lovenox twice daily, vancomycin, Zosyn, azithromycin antibiotics started due to atypical chest x-ray presentation and sepsis on presentation, Dhruv Harrington. Blood cultures pending 2 units Convalescent plasma to be administered. Patient does have a negative COVID-19 test but patient states that he has been exposed to multiple Covid positive individuals at his work. Patient consents to convalescent plasma, authorization form signed.
[2020-08-29] MEDS: REMDESIVIR 100 MG in Sodium Chloride 0.9% 100 ML IV SCH (17:16)
[2020-08-29] MEDS: Dexamethasone 4 MG Tab PO SCH (17:19)
[2020-08-29] MEDS: Azithromycin 250 MG Tab PO SCH (17:20)
[2020-08-29] MEDS: Loperamide 2 MG Cap PO PRN (18:57)
[2020-08-30] MEDS: Piperacillin/Tazobactam 3.375 GM in Sodium Chloride 0.9% 50 ML IV SCH ×3 (05:29→20:36)
[2020-08-30] MEDS: Enoxaparin 40 MG/0.4 ML Syringe SUBCUT SCH ×2 (08:47→21:49)
[2020-08-30] MEDS: Atenolol 25 MG Tab PO SCH (08:48)
[2020-08-30] MEDS: Albuterol/Ipratropium 4 GM Inhalation Spray INH SCH ×2 (08:56→21:47)
[2020-08-30 09:08] LABS: BLOOD UREA NITROGEN,BUN 21 mg/dL (7.0-18.0); CARBON DIOXIDE,CO2 24.2 mmol/L (21.0-32.0); CHLORIDE,CL 104 mmol/L (98-107); GLUCOSE RANDOM 161 mg/dL (74-106); POTASSIUM,K 3.8 mmol/L (3.5-5.1); SODIUM,NA 138 mmol/L (136-148)
[2020-08-30] MEDS: Loperamide 2 MG Cap PO PRN (14:18)
--- NOTE | 2020-08-30 15:03 | PCM.PN ---
- General Info Date of Service: 08/30/20 Subjective Update: Patient still states shortness of breath with exertion. Patient states that he does feel better with rest, denies chills denies nausea denies abdominal pain. Patient states diarrhea is much improved since previously. Patient did have a positive Covid test overnight and states no concerns with the convalescent plasma he received yesterday. - Review of Systems General: Denies: Fever, Chills Pulmonary: Reports: Shortness of Breath, Cough Cardiovascular: Reports: Dyspnea on Exertion. Denies: Chest Pain, Palpitations Gastrointestinal: Reports: Decreased Appetite. Denies: Abdominal Pain, Nausea, Vomiting Neurological: Denies: Confusion, Dizziness, Headache - Patient Data Vitals - Most Recent: Last Vital Signs Temp 98.6 F 08/30/20 09:00 Pulse 80 08/30/20 09:00 Resp 28 H 08/30/20 09:00 BP 120/66 08/30/20 09:00 Pulse Ox 90 L 08/30/20 09:00 Weight - Most Recent: 165 lb 9.074 oz I&O - Last 24 Hours: Intake & Output 08/29/20 08/30/20 08/30/20 22:59 06:59 14:59 Intake Total 650 1597 Output Total 600 Balance 650 997 Lab Results Last 24 Hours: Laboratory Results - last 24 hr 08/29/20 08/29/20 08/30/20 Range/Units 11:12 20:15 08:41 WBC (4.0-11.0) K/uL RBC (4.50-5.90) M/uL Hgb (13.0-17.0) g/dL Hct (38.0-50.0) % MCV (80.0-98.0) fL MCH (27.0-32.0) pg MCHC (31.0-37.0) g/dL RDW Std Deviation (28.0-62.0) fl RDW Coeff of Antonietta (11.0-15.0) % Plt Count (150-400) K/uL MPV (7.40-12.00) fL Neut % (Auto) (48.0-80.0) % Lymph % (Auto) (16.0-40.0) % Terry % (Auto) (0.0-15.0) % Eos % (Auto) (0.0-7.0) % Baso % (Auto) (0.0-1.5) % Neut # (Auto) (1.4-5.7) K/uL Lymph # (Auto) (0.6-2.4) K/uL Terry # (Auto) (0.0-0.8) K/uL Eos # (Auto) (0.0-0.7) K/uL Baso # (Auto) (0.0-0.1) K/uL Nucleated RBC % /100WBC Nucleated RBCs # K/uL Sodium (136-148) mmol/L Potassium (3.5-5.1) mmol/L Chloride (98-107) mmol/L Carbon Dioxide (21.0-32.0) mmol/L BUN (7.0-18.0) mg/dL Creatinine (0.8-1.3) mg/dL Est Cr Clr Drug Dosing mL/min Estimated GFR (MDRD) ml/min Glucose (74-106) mg/dL Calcium (8.5-10.1) mg/dL Vancomycin Trough 7.0 (5.0-10.0) ug/mL SARS-CoV-2 RNA (RHIANNA) POSITIVE H (NEGATIVE) Blood Type A POSITIVE Antibody Screen NEGATIVE 08/30/20 08/30/20 Range/Units 08:41 08:41 WBC 15.77 H (4.0-11.0) K/uL RBC 4.16 L (4.50-5.90) M/uL Hgb 11.5 L (13.0-17.0) g/dL Hct 35.2 L (38.0-50.0) % MCV 84.6 (80.0-98.0) fL MCH 27.6 (27.0-32.0) pg MCHC 32.7 (31.0-37.0) g/dL RDW Std Deviation 39.9 (28.0-62.0) fl RDW Coeff of Antonietta 13 (11.0-15.0) % Plt Count 250 (150-400) K/uL MPV 10.40 (7.40-12.00) fL Neut % (Auto) 86.8 H (48.0-80.0) % Lymph % (Auto) 5.5 L (16.0-40.0) % Terry % (Auto) 7.6 (0.0-15.0) % Eos % (Auto) 0.0 (0.0-7.0) % Baso % (Auto) 0.1 (0.0-1.5) % Neut # (Auto) 13.7 H (1.4-5.7) K/uL Lymph # (Auto) 0.9 (0.6-2.4) K/uL Terry # (Auto) 1.2 H (0.0-0.8) K/uL Eos # (Auto) 0.0 (0.0-0.7) K/uL Baso # (Auto) 0.0 (0.0-0.1) K/uL Nucleated RBC % 0.0 /100WBC Nucleated RBCs # 0 K/uL Sodium 138 (136-148) mmol/L Potassium 3.8 (3.5-5.1) mmol/L Chloride 104 (98-107) mmol/L Carbon Dioxide 24.2 (21.0-32.0) mmol/L BUN 21 H (7.0-18.0) mg/dL Creatinine 1.1 (0.8-1.3) mg/dL Est Cr Clr Drug Dosing 72.99 mL/min Estimated GFR (MDRD) > 60.0 ml/min Glucose 161 H (74-106) mg/dL Calcium 8.6 (8.5-10.1) mg/dL Vancomycin Trough (5.0-10.0) ug/mL SARS-CoV-2 RNA (RHIANNA) (NEGATIVE) Blood Type Antibody Screen Leo Results Last 24 Hours: Microbiology 08/28/20 18:07 Aerobic Blood Culture - Preliminary Blood - Venous - Lab Draw NO GROWTH AFTER 1 DAY Anaerobic Blood Culture - Preliminary NO GROWTH AFTER 1 DAY 08/28/20 17:58 Aerobic Blood Culture - Preliminary Blood - Venous NO GROWTH AFTER 1 DAY Anaerobic Blood Culture - Preliminary NO GROWTH AFTER 1 DAY Med Orders - Current: Current Medications Acetaminophen (Tylenol) 650 mg PO Q4H PRN PRN Reason: Pain/Fever Last Admin: 08/29/20 17:16 Dose: 650 mg Documented by: Albuterol/Ipratropium (Combivent Respimat) 0 gm INH BID [facility] Last Admin: 08/30/20 08:56 Dose: 1 puff Documented by: Atenolol (Tenormin) 25 mg PO DAILY [facility] Last Admin: 08/30/20 08:48 Dose: 25 mg Documented by: Azithromycin (Zithromax) 250 mg PO Q24H [facility] Last Admin: 08/29/20 17:20 Dose: 250 mg Documented by: Benzonatate (Tessalon Perles) 100 mg PO TID PRN PRN Reason: Cough Last Admin: 08/29/20 20:03 Dose: 100 mg Documented by: Dexamethasone (Dexamethasone) 6 mg PO DAILY@1800 [facility] Last Admin: 08/29/20 17:19 Dose: 6 mg Documented by: Enoxaparin Sodium (Lovenox) 40 mg SUBCUT BID [facility] Last Admin: 08/30/20 08:47 Dose: 40 mg Documented by: Guaifenesin/Codeine Phosphate (Robitussin Ac) 5 ml PO Q6H PRN PRN Reason: Cough Last Admin: 08/29/20 08:14 Dose: 5 ml Documented by: Piperacillin Sod/Tazobactam (Sod 3.375 gm/ Sodium Chloride) 50 mls @ 100 mls/hr IV Q8H [facility] Last Admin: 08/30/20 12:00 Dose: 100 mls/hr Documented by: Remdesivir 100 mg/ Sodium (Chloride) 100 mls @ 100 mls/hr IV Q24H [facility] Stop: 09/01/20 18:59 Last Admin: 08/29/20 17:16 Dose: 100 mls/hr Documented by: Vancomycin HCl 1 gm/ Sodium (Chloride) 250 mls @ 166 mls/hr IV Q8H [facility] Last Admin: 08/30/20 11:45 Dose: 166 mls/hr Documented by: Loperamide HCl (Imodium) 2 mg PO Q6H PRN PRN Reason: Diarrhea Last Admin: 08/30/20 14:18 Dose: 2 mg Documented by: Vancomycin HCl (Pharmacy To Dose - Vancomycin) 1 dose .XX ASDIRECTED [facility] Discontinued Medications Albuterol/Ipratropium (Combivent Respimat) 0 gm INH Q4H PRN PRN Reason: Dyspnea Azithromycin (Zithromax) 250 mg PO Q24H [facility] Enoxaparin Sodium (Lovenox) 40 mg SUBCUT BID [facility] Lactated Ringer's (Ringers, Lactated) 1,000 mls @ 999 mls/hr IV BOLUS ONE Stop: 08/28/20 17:48 Last Admin: 08/28/20 18:04 Dose: 999 mls/hr Documented by: Piperacillin Sod/Tazobactam (Sod 3.375 gm/ Sodium Chloride) 50 mls @ 100 mls/hr IV Q8H [facility] Last Admin: 08/28/20 19:09 Dose: Not Given Documented by: Vancomycin HCl 1.5 gm/ Premix 300 mls @ 300 mls/hr IV ONETIME ONE Stop: 08/28/20 20:14 Last Admin: 08/28/20 20:13 Dose: 300 mls/hr Documented by: Remdesivir 200 mg/ Sodium (Chloride) 250 mls @ 250 mls/hr IV ONETIME ONE Stop: 08/28/20 19:48 Last Admin: 08/28/20 22:18 Dose: 250 mls/hr Documented by: Azithromycin 500 mg/ Sodium (Chloride) 250 mls @ 250 mls/hr IV ONETIME [facility] Lactated Ringer's (Ringers, Lactated) 1,000 mls @ 999 mls/hr IV .BOLUS ONE Stop: 08/28/20 22:05 Last Admin: 08/28/20 21:44 Dose: 999 mls/hr Documented by: Lactated Ringer's (Ringers, Lactated) 1,000 mls @ 125 mls/hr IV ASDIRECTED [facility] Last Admin: 08/28/20 22:19 Dose: 125 mls/hr Documented by: Vancomycin HCl 1 gm/ Sodium (Chloride) 250 mls @ 166 mls/hr IV Q12H [facility] Last Admin: 08/29/20 20:02 Dose: 166 mls/hr Documented by: - Exam Quality Assessment: Supplemental Oxygen General: Alert, Oriented Lungs: Clear to Auscultation, Rales (fine rales, right lung ) Cardiovascular: Regular Rate, Regular Rhythm GI/Abdominal Exam: Normal Bowel Sounds, Soft, Non-Tender Psy/Mental Status: Alert Sepsis Event Note - Evaluation Sepsis Screening Result: No Definite Risk - Focused Exam Vital Signs: Vital Signs Temp Temp Pulse Pulse Resp BP BP 08/30/20 09:00 98.6 F 80 28 H 120/66 08/30/20 08:48 80 120/66 08/30/20 05:00 08/30/20 04:40 99.0 F 80 20 125/70 Pulse Ox 08/30/20 09:00 90 L 08/30/20 08:48 08/30/20 05:00 91 L 08/30/20 04:40 - Problem List & Annotations (1) Pneumonia SNOMED Code(s): 972878769 Code(s): J18.9 - PNEUMONIA, UNSPECIFIED ORGANISM Status: Acute Current Visit: Yes (2) Sepsis SNOMED Code(s): 86419405 Code(s): A41.9 - SEPSIS, UNSPECIFIED ORGANISM Status: Acute Current Visit: No (3) Hypertension SNOMED Code(s): 47239266 Code(s): I10 - ESSENTIAL (PRIMARY) HYPERTENSION Status: Acute Current Visit: Yes - Problem List Review Problem List Initiated/Reviewed/Updated: Yes - My Orders Last 24 Hours: My Active Orders 08/29/20 18:06 Loperamide [Imodium] 2 mg PO Q6H PRN 08/30/20 09:00 atenoloL [Tenormin] 25 mg PO DAILY 08/30/20 09:02 Patient Status [ADT] Routine 08/30/20 11:45 Vancomycin [Vancocin] 1 gm Sodium Chloride 0.9% [Normal Saline (AdvBag)] 250 ml IV Q8H 08/31/20 11:15 VANCOMYCIN TROUGH [CHEM] Routine - Plan Plan:: COVID-19 Test was positive. Currently on HHF FiO2 71, Flow 30. Given 2 units convalescent plasma, Remdesivir, dexamethasone, Combivent, Lovenox twice daily, vancomycin, Zosyn, azithromycin antibiotics started due to atypical chest x-ray presentation and sepsis on presentation, Dhruv Harrington. HTN- atenolol 25mg daily
[2020-08-30] MEDS: Dexamethasone 4 MG Tab PO SCH (17:13)
[2020-08-30] MEDS: Azithromycin 250 MG Tab PO SCH (17:13)
[2020-08-30] MEDS: REMDESIVIR 100 MG in Sodium Chloride 0.9% 100 ML IV SCH (18:25)
[2020-08-30] MEDS ORDERED: Azithromycin 250 MG Tab PO SCH (20:00)
[2020-08-31] MEDS: Piperacillin/Tazobactam 3.375 GM in Sodium Chloride 0.9% 50 ML IV SCH ×3 (06:41→20:10)
[2020-08-31 07:05] LABS: CARBON DIOXIDE,CO2 24.9 mmol/L (21.0-32.0); POTASSIUM,K 3.8 mmol/L (3.5-5.1)
[2020-08-31] MEDS: Atenolol 25 MG Tab PO SCH (08:31)
[2020-08-31] MEDS: Enoxaparin 40 MG/0.4 ML Syringe SUBCUT SCH ×2 (08:31→21:27)
[2020-08-31] MEDS: Albuterol/Ipratropium 4 GM Inhalation Spray INH SCH ×2 (08:32→20:26)
--- NOTE | 2020-08-31 10:05 | PCM.PN ---
- General Info Date of Service: 08/31/20 Subjective Update: Patient states he was able to sleep comfortably last night with some readjustment. Patient states that this morning his right eyelid appears to be little bit more swollen, but denies any changes in vision or discharge from the eye. Patient denies chest pain, fever, nausea, vomiting, diarrhea, abdominal pain. Patient states he still has shortness of breath with exertion but is significantly improved since previous day. - Review of Systems General: Denies: Fever, Chills Pulmonary: Reports: Shortness of Breath (with ambulation, improved from previous day) Gastrointestinal: Denies: Abdominal Pain, Nausea, Vomiting Neurological: Denies: Confusion, Dizziness, Headache - Patient Data Vitals - Most Recent: Last Vital Signs Temp 97.0 F 08/31/20 08:37 Pulse 64 08/31/20 08:37 Resp 22 H 08/31/20 08:37 BP 117/66 08/31/20 08:37 Pulse Ox 94 L 08/31/20 08:37 Weight - Most Recent: 165 lb 9.074 oz I&O - Last 24 Hours: Intake & Output 08/30/20 08/31/20 08/31/20 22:59 06:59 14:59 Intake Total 840 Balance 840 Lab Results Last 24 Hours: Laboratory Results - last 24 hr 08/31/20 08/31/20 Range/Units 06:20 06:20 WBC 16.56 H (4.0-11.0) K/uL RBC 4.42 L (4.50-5.90) M/uL Hgb 12.5 L (13.0-17.0) g/dL Hct 37.6 L (38.0-50.0) % MCV 85.1 (80.0-98.0) fL MCH 28.3 (27.0-32.0) pg MCHC 33.2 (31.0-37.0) g/dL RDW Std Deviation 41.1 (28.0-62.0) fl RDW Coeff of Antonietta 13 (11.0-15.0) % Plt Count 329 (150-400) K/uL MPV 10.50 (7.40-12.00) fL Neut % (Auto) 86.2 H (48.0-80.0) % Lymph % (Auto) 7.1 L (16.0-40.0) % Bennett % (Auto) 6.6 (0.0-15.0) % Eos % (Auto) 0.0 (0.0-7.0) % Baso % (Auto) 0.1 (0.0-1.5) % Neut # (Auto) 14.3 H (1.4-5.7) K/uL Lymph # (Auto) 1.2 (0.6-2.4) K/uL Bennett # (Auto) 1.1 H (0.0-0.8) K/uL Eos # (Auto) 0.0 (0.0-0.7) K/uL Baso # (Auto) 0.0 (0.0-0.1) K/uL Nucleated RBC % 0.0 /100WBC Nucleated RBCs # 0 K/uL Sodium 139 (136-148) mmol/L Potassium 3.8 (3.5-5.1) mmol/L Chloride 105 (98-107) mmol/L Carbon Dioxide 24.9 (21.0-32.0) mmol/L BUN 23 H (7.0-18.0) mg/dL Creatinine 1.3 (0.8-1.3) mg/dL Est Cr Clr Drug Dosing 61.76 mL/min Estimated GFR (MDRD) 59.4 ml/min Glucose 163 H (74-106) mg/dL Calcium 8.6 (8.5-10.1) mg/dL Total Bilirubin 0.5 (0.2-1.0) mg/dL AST 50 H (15-37) IU/L ALT 52 (14-63) IU/L Alkaline Phosphatase 62 (46-116) U/L Total Protein 6.9 (6.4-8.2) g/dL Albumin 2.6 L (3.4-5.0) g/dL Globulin 4.3 H (2.6-4.0) g/dL Albumin/Globulin Ratio 0.6 L (0.9-1.6) Leo Results Last 24 Hours: Microbiology 08/28/20 18:07 Aerobic Blood Culture - Preliminary Blood - Venous - Lab Draw NO GROWTH AFTER 2 DAYS Anaerobic Blood Culture - Preliminary NO GROWTH AFTER 2 DAYS 08/28/20 17:58 Aerobic Blood Culture - Preliminary Blood - Venous NO GROWTH AFTER 2 DAYS Anaerobic Blood Culture - Preliminary NO GROWTH AFTER 2 DAYS Med Orders - Current: Current Medications Acetaminophen (Tylenol) 650 mg PO Q4H PRN PRN Reason: Pain/Fever Last Admin: 08/29/20 17:16 Dose: 650 mg Documented by: Albuterol/Ipratropium (Combivent Respimat) [address] [facility] Last Admin: 08/31/20 08:32 Dose: 1 puff Documented by: Atenolol (Tenormin) [address] [facility] Last Admin: 08/31/20 08:31 Dose: 25 mg Documented by: Azithromycin (Zithromax) [address] [facility] Last Admin: 08/30/20 17:13 Dose: 250 mg Documented by: Benzonatate (Tessalon Perles) 100 mg PO TID PRN PRN Reason: Cough Last Admin: 08/29/20 20:03 Dose: 100 mg Documented by: Dexamethasone (Dexamethasone) 6 mg PO DAILY@1800 [facility] Last Admin: 08/30/20 17:13 Dose: 6 mg Documented by: Enoxaparin Sodium (Lovenox) [address] [facility] Last Admin: 08/31/20 08:31 Dose: 40 mg Documented by: Guaifenesin/Codeine Phosphate (Robitussin Ac) 5 ml PO Q6H PRN PRN Reason: Cough Last Admin: 08/29/20 08:14 Dose: 5 ml Documented by: Piperacillin Sod/Tazobactam (Sod 3.375 gm/ Sodium Chloride) 50 mls @ 100 mls/hr IV Q8H [facility] Last Admin: 08/31/20 06:41 Dose: 100 mls/hr Documented by: Remdesivir 100 mg/ Sodium (Chloride) 100 mls @ 100 mls/hr IV Q24H [facility] Stop: 09/01/20 18:59 Last Admin: 08/30/20 18:25 Dose: 100 mls/hr Documented by: Vancomycin HCl 1 gm/ Sodium (Chloride) 250 mls @ 166 mls/hr IV Q8H [facility] Last Admin: 08/31/20 04:43 Dose: 166 mls/hr Documented by: Loperamide HCl (Imodium) 2 mg PO Q6H PRN PRN Reason: Diarrhea Last Admin: 08/30/20 14:18 Dose: 2 mg Documented by: Vancomycin HCl (Pharmacy To Dose - Vancomycin) [address] [facility] Discontinued Medications Albuterol/Ipratropium (Combivent Respimat) 0 gm INH Q4H PRN PRN Reason: Dyspnea Azithromycin (Zithromax) [address] [facility] Enoxaparin Sodium (Lovenox) [address] [facility] Lactated Ringer's (Ringers, Lactated) 1,000 mls @ 999 mls/hr IV BOLUS ONE Stop: 08/28/20 17:48 Last Admin: 08/28/20 18:04 Dose: 999 mls/hr Documented by: Piperacillin Sod/Tazobactam (Sod 3.375 gm/ Sodium Chloride) 50 mls @ 100 mls/hr IV Q8H [facility] Last Admin: 08/28/20 19:09 Dose: Not Given Documented by: Vancomycin HCl 1.5 gm/ Premix 300 mls @ 300 mls/hr IV ONETIME ONE Stop: 08/28/20 20:14 Last Admin: 08/28/20 20:13 Dose: 300 mls/hr Documented by: Remdesivir 200 mg/ Sodium (Chloride) 250 mls @ 250 mls/hr IV ONETIME ONE Stop: 08/28/20 19:48 Last Admin: 08/28/20 22:18 Dose: 250 mls/hr Documented by: Azithromycin 500 mg/ Sodium (Chloride) 250 mls @ 250 mls/hr IV ONETIME [facility] Lactated Ringer's (Ringers, Lactated) 1,000 mls @ 999 mls/hr IV .BOLUS ONE Stop: 08/28/20 22:05 Last Admin: 08/28/20 21:44 Dose: 999 mls/hr Documented by: Lactated Ringer's (Ringers, Lactated) 1,000 mls @ 125 mls/hr IV ASDIRECTED [facility] Last Admin: 08/28/20 22:19 Dose: 125 mls/hr Documented by: Vancomycin HCl 1 gm/ Sodium (Chloride) 250 mls @ 166 mls/hr IV Q12H [facility] Last Admin: 08/29/20 20:02 Dose: 166 mls/hr Documented by: - Exam Quality Assessment: Supplemental Oxygen (HHF) General: Alert, Oriented Lungs: Clear to Auscultation, Other (shallow breaths, reduced inspiratory effort) Cardiovascular: Regular Rate, Regular Rhythm GI/Abdominal Exam: Normal Bowel Sounds, Soft, Non-Tender Extremities: No Pedal Edema Sepsis Event Note - Evaluation Sepsis Screening Result: No Definite Risk - Focused Exam Vital Signs: Vital Signs Temp Pulse Pulse Resp BP BP Pulse Ox 08/31/20 08:37 97.0 F 64 22 H 117/66 94 L 08/31/20 08:31 64 117/66 08/30/20 22:30 98.1 F 61 21 H 127/69 91 L - Problem List & Annotations (1) Pneumonia SNOMED Code(s): 649256254 Code(s): J18.9 - PNEUMONIA, UNSPECIFIED ORGANISM Status: Acute Current Visit: Yes (2) Sepsis SNOMED Code(s): 99473257 Code(s): A41.9 - SEPSIS, UNSPECIFIED ORGANISM Status: Acute Current Visit: No (3) Hypertension SNOMED Code(s): 72443871 Code(s): I10 - ESSENTIAL (PRIMARY) HYPERTENSION Status: Acute Current Visit: Yes - Problem List Review Problem List Initiated/Reviewed/Updated: Yes - My Orders Last 24 Hours: My Active Orders 08/30/20 09:02 Patient Status [ADT] Routine 08/30/20 11:45 Vancomycin [Vancocin] 1 gm Sodium Chloride 0.9% [Normal Saline (AdvBag)] 250 ml IV Q8H 08/31/20 11:15 VANCOMYCIN TROUGH [CHEM] Routine - Plan Plan:: COVID-19 Test was positive. Currently on HHF FiO2 68, Flow 30. Given 2 units convalescent plasma, Remdesivir, dexamethasone, Combivent, Lovenox twice daily, vancomycin, Zosyn, azithromycin antibiotics started due to atypical chest x-ray presentation and sepsis on presentation, Dhruv Harrington. Continue treatment. Encourage prone positioning and Incentive Spirometry HTN- atenolol 25mg daily
[2020-08-31] MEDS ORDERED: Furosemide 20 MG/2 ML VIAL IVPUSH ONE (12:00)
[2020-08-31] MEDS: Dexamethasone 4 MG Tab PO SCH (17:29)
[2020-08-31] MEDS: Azithromycin 250 MG Tab PO SCH (17:29)
[2020-08-31] MEDS: REMDESIVIR 100 MG in Sodium Chloride 0.9% 100 ML IV SCH (17:30)
[2020-09-01] MEDS: Calcium Carbonate 500 MG Tab.Chew PO PRN ×2 (03:13→12:16)
[2020-09-01] MEDS: Piperacillin/Tazobactam 3.375 GM in Sodium Chloride 0.9% 50 ML IV SCH ×3 (03:14→19:59)
[2020-09-01 07:10] LABS: CARBON DIOXIDE,CO2 23.2 mmol/L (21.0-32.0); POTASSIUM,K 3.8 mmol/L (3.5-5.1)
[2020-09-01] MEDS: Atenolol 25 MG Tab PO SCH (08:10)
[2020-09-01] MEDS: Enoxaparin 40 MG/0.4 ML Syringe SUBCUT SCH ×2 (08:13→20:57)
[2020-09-01] MEDS: Albuterol/Ipratropium 4 GM Inhalation Spray INH SCH ×2 (08:14→20:57)
--- NOTE | 2020-09-01 12:04 | PCM.PN ---
- General Info Date of Service: 09/01/20 - Review of Systems Systems Review Comment:: feeling better, reports cough - Patient Data Vitals - Most Recent: Last Vital Signs Temp 36.2 C 09/01/20 10:00 Pulse 64 09/01/20 10:00 Resp 18 09/01/20 10:00 BP 119/69 09/01/20 10:00 Pulse Ox 94 L 09/01/20 10:00 Weight - Most Recent: 75.1 kg I&O - Last 24 Hours: Intake & Output 08/31/20 09/01/20 09/01/20 22:59 06:59 14:59 Intake Total 600 Output Total 0 1300 Balance 0 -700 Lab Results Last 24 Hours: Laboratory Results - last 24 hr 08/31/20 09/01/20 09/01/20 Range/Units 11:23 06:15 06:15 WBC 16.76 H (4.0-11.0) K/uL RBC 4.83 (4.50-5.90) M/uL Hgb 13.5 (13.0-17.0) g/dL Hct 40.8 (38.0-50.0) % MCV 84.5 (80.0-98.0) fL MCH 28.0 (27.0-32.0) pg MCHC 33.1 (31.0-37.0) g/dL RDW Std Deviation 39.5 (28.0-62.0) fl RDW Coeff of Antonietta 13 (11.0-15.0) % Plt Count 419 H (150-400) K/uL MPV 10.90 (7.40-12.00) fL Add Manual Diff YES Neutrophils % (Manual) 79 (48.0-80.0) % Lymphocytes % (Manual) 9 L (16.0-40.0) % Monocytes % (Manual) 10 (0.0-15.0) % Metamyelocytes % 2 % Nucleated RBC % 0.0 /100WBC Absolute Seg Neuts 13.2 H (1.4-5.7) Lymphocytes # (Manual) 1.5 (0.6-2.4) Monocytes # (Manual) 1.7 H (0.0-0.8) Absolute Metamyelocyte 0.3 Nucleated RBCs # 0 K/uL Sodium 136 (136-148) mmol/L Potassium 3.8 (3.5-5.1) mmol/L Chloride 100 (98-107) mmol/L Carbon Dioxide 23.2 (21.0-32.0) mmol/L BUN 29 H (7.0-18.0) mg/dL Creatinine 1.4 H (0.8-1.3) mg/dL Est Cr Clr Drug Dosing 57.35 mL/min Estimated GFR (MDRD) 54.6 ml/min Glucose 134 H (74-106) mg/dL Calcium 9.1 (8.5-10.1) mg/dL Total Bilirubin 0.6 (0.2-1.0) mg/dL AST 51 H (15-37) IU/L ALT 66 H (14-63) IU/L Alkaline Phosphatase 80 (46-116) U/L Total Protein 7.7 (6.4-8.2) g/dL Albumin 3.1 L (3.4-5.0) g/dL Globulin 4.6 H (2.6-4.0) g/dL Albumin/Globulin Ratio 0.7 L (0.9-1.6) Vancomycin Trough 20.1 H (5.0-10.0) ug/mL Leo Results Last 24 Hours: Microbiology 08/28/20 18:07 Aerobic Blood Culture - Preliminary Blood - Venous - Lab Draw NO GROWTH AFTER 3 DAYS Anaerobic Blood Culture - Preliminary NO GROWTH AFTER 3 DAYS 08/28/20 17:58 Aerobic Blood Culture - Preliminary Blood - Venous NO GROWTH AFTER 3 DAYS Anaerobic Blood Culture - Preliminary NO GROWTH AFTER 3 DAYS Med Orders - Current: Current Medications Acetaminophen (Tylenol) 650 mg PO Q4H PRN PRN Reason: Pain/Fever Last Admin: 08/29/20 17:16 Dose: 650 mg Documented by: Albuterol/Ipratropium (Combivent Respimat) 0 gm INH BID [facility] Last Admin: 09/01/20 08:14 Dose: 1 puff Documented by: Atenolol (Tenormin) 25 mg PO DAILY [facility] Last Admin: 09/01/20 08:10 Dose: 25 mg Documented by: Azithromycin (Zithromax) 250 mg PO Q24H [facility] Last Admin: 08/31/20 17:29 Dose: 250 mg Documented by: Benzonatate (Tessalon Perles) 100 mg PO TID PRN PRN Reason: Cough Last Admin: 08/29/20 20:03 Dose: 100 mg Documented by: Calcium Carbonate/Glycine (Tums) 500 mg PO TID PRN PRN Reason: Heartburn Last Admin: 09/01/20 03:13 Dose: 500 mg Documented by: Dexamethasone (Dexamethasone) 6 mg PO DAILY@1800 [facility] Last Admin: 08/31/20 17:29 Dose: 6 mg Documented by: Enoxaparin Sodium (Lovenox) 40 mg SUBCUT BID [facility] Last Admin: 09/01/20 08:13 Dose: 40 mg Documented by: Guaifenesin/Codeine Phosphate (Robitussin Ac) 5 ml PO Q6H PRN PRN Reason: Cough Last Admin: 08/29/20 08:14 Dose: 5 ml Documented by: Piperacillin Sod/Tazobactam (Sod 3.375 gm/ Sodium Chloride) 50 mls @ 100 mls/hr IV Q8H [facility] Last Admin: 09/01/20 11:49 Dose: 100 mls/hr Documented by: Remdesivir 100 mg/ Sodium (Chloride) 100 mls @ 100 mls/hr IV Q24H [facility] Stop: 09/01/20 18:59 Loperamide HCl (Imodium) 2 mg PO Q6H PRN PRN Reason: Diarrhea Last Admin: 08/30/20 14:18 Dose: 2 mg Documented by: Discontinued Medications Albuterol/Ipratropium (Combivent Respimat) 0 gm INH Q4H PRN PRN Reason: Dyspnea Azithromycin (Zithromax) 250 mg PO Q24H [facility] Enoxaparin Sodium (Lovenox) 40 mg SUBCUT BID [facility] Furosemide (Lasix) 20 mg IVPUSH NOW ONE Stop: 08/31/20 12:01 Last Admin: 08/31/20 12:56 Dose: 20 mg Documented by: Lactated Ringer's (Ringers, Lactated) 1,000 mls @ 999 mls/hr IV BOLUS ONE Stop: 08/28/20 17:48 Last Admin: 08/28/20 18:04 Dose: 999 mls/hr Documented by: Piperacillin Sod/Tazobactam (Sod 3.375 gm/ Sodium Chloride) 50 mls @ 100 mls/hr IV Q8H [facility] Last Admin: 08/28/20 19:09 Dose: Not Given Documented by: Vancomycin HCl 1.5 gm/ Premix 300 mls @ 300 mls/hr IV ONETIME ONE Stop: 08/28/20 20:14 Last Admin: 08/28/20 20:13 Dose: 300 mls/hr Documented by: Remdesivir 200 mg/ Sodium (Chloride) 250 mls @ 250 mls/hr IV ONETIME ONE Stop: 08/28/20 19:48 Last Admin: 08/28/20 22:18 Dose: 250 mls/hr Documented by: Remdesivir 100 mg/ Sodium (Chloride) 100 mls @ 100 mls/hr IV Q24H [facility] Stop: 09/01/20 18:59 Last Admin: 08/31/20 17:30 Dose: 100 mls/hr Documented by: Azithromycin 500 mg/ Sodium (Chloride) 250 mls @ 250 mls/hr IV ONETIME [facility] Lactated Ringer's (Ringers, Lactated) 1,000 mls @ 999 mls/hr IV .BOLUS ONE Stop: 08/28/20 22:05 Last Admin: 08/28/20 21:44 Dose: 999 mls/hr Documented by: Lactated Ringer's (Ringers, Lactated) 1,000 mls @ 125 mls/hr IV ASDIRECTED [facility] Last Admin: 08/28/20 22:19 Dose: 125 mls/hr Documented by: Vancomycin HCl 1 gm/ Sodium (Chloride) 250 mls @ 166 mls/hr IV Q12H [facility] Last Admin: 08/29/20 20:02 Dose: 166 mls/hr Documented by: Vancomycin HCl 1 gm/ Sodium (Chloride) 250 mls @ 166 mls/hr IV Q8H [facility] Last Admin: 08/31/20 11:15 Dose: 166 mls/hr Documented by: Vancomycin HCl (Pharmacy To Dose - Vancomycin) 1 dose .XX ASDIRECTED [facility] - Exam General: Alert, Oriented Neck: Supple Lungs: Clear to Auscultation, Normal Respiratory Effort Cardiovascular: Regular Rate, Regular Rhythm GI/Abdominal Exam: Normal Bowel Sounds, Soft, Non-Tender Extremities: Non-Tender, No Pedal Edema Skin: Warm, Dry, Intact Sepsis Event Note - Evaluation Sepsis Screening Result: No Definite Risk - Focused Exam Vital Signs: Vital Signs Temp Pulse Pulse Resp BP BP Pulse Ox 09/01/20 10:00 36.2 C 64 18 119/69 94 L 09/01/20 08:10 70 116/79 09/01/20 06:00 35.6 C L 67 19 95 09/01/20 02:51 35.6 C L 70 19 118/81 95 09/01/20 00:03 36.8 C 56 L 18 96 - Problem List Review Problem List Initiated/Reviewed/Updated: Yes - My Orders Last 24 Hours: My Active Orders 09/01/20 02:58 Calcium Carbonate [Tums] 500 mg PO TID PRN - Plan Plan:: COVID-19 Currently on HHF FiO2 68, Flow 30. s/p 2 units convalescent plasma, Continue Remdesivir, dexamethasone, Combivent, Lovenox twice daily, Zosyn, and azithromycin. vancomycin d/c yesterday
[2020-09-01] MEDS ORDERED: REMDESIVIR 100 MG in Sodium Chloride 0.9% 100 ML IV SCH (18:00)
[2020-09-01] MEDS: Dexamethasone 4 MG Tab PO SCH (18:18)
[2020-09-01] MEDS: Azithromycin 250 MG Tab PO SCH (18:23)
[2020-09-02] MEDS: Piperacillin/Tazobactam 3.375 GM in Sodium Chloride 0.9% 50 ML IV SCH (04:27)
[2020-09-02 06:36] LABS: CARBON DIOXIDE,CO2 25.6 mmol/L (21.0-32.0); POTASSIUM,K 3.8 mmol/L (3.5-5.1)
[2020-09-02] MEDS: Enoxaparin 40 MG/0.4 ML Syringe SUBCUT SCH ×2 (08:02→20:21)
[2020-09-02] MEDS: Atenolol 25 MG Tab PO SCH (08:02)
[2020-09-02] MEDS: Albuterol/Ipratropium 4 GM Inhalation Spray INH SCH ×2 (08:03→20:37)
--- NOTE | 2020-09-02 08:13 | PCM.PN ---
- General Info Date of Service: 09/02/20 Admission Dx/Problem (Free Text): Admission Diagnosis/Problem Admission Diagnosis/Problem Pneumonia Subjective Update: Feeling better today, shortness of breath has improved. But continues to have exertional shortness of breath. No chest pain. Eating or drinking well no fevers or chills. Functional Status: Reports: Pain Controlled, Tolerating Diet, Ambulating, Urinating - Review of Systems General: Reports: Fatigue, Malaise. Denies: Fever, Chills HEENT: Reports: No Symptoms. Denies: Headaches, Sore Throat, Visual Changes Pulmonary: Reports: Shortness of Breath. Denies: Cough Cardiovascular: Denies: Chest Pain Gastrointestinal: Reports: No Symptoms. Denies: Abdominal Pain, Nausea, Vomiting Genitourinary: Reports: No Symptoms. Denies: Dysuria, Frequency, Burning Musculoskeletal: Reports: No Symptoms Skin: Reports: No Symptoms Neurological: Reports: No Symptoms Psychiatric: Reports: No Symptoms - Patient Data Vitals - Most Recent: Last Vital Signs Temp 97 F 09/02/20 07:53 Pulse 63 09/02/20 08:02 Resp 16 09/02/20 07:53 BP 134/89 09/02/20 08:02 Pulse Ox 93 L 09/02/20 07:53 Weight - Most Recent: 75.1 kg I&O - Last 24 Hours: Intake & Output 09/01/20 09/02/20 09/02/20 22:59 06:59 14:59 Intake Total 2000 1080 Output Total 1100 Balance 1999 - Lab Results Last 24 Hours: Laboratory Results - last 24 hr 09/02/20 09/02/20 Range/Units 06:05 06:05 WBC 14.84 H (4.0-11.0) K/uL RBC 4.80 (4.50-5.90) M/uL Hgb 13.6 (13.0-17.0) g/dL Hct 40.4 (38.0-50.0) % MCV 84.2 (80.0-98.0) fL MCH 28.3 (27.0-32.0) pg MCHC 33.7 (31.0-37.0) g/dL RDW Std Deviation 38.4 (28.0-62.0) fl RDW Coeff of Antonietta 13 (11.0-15.0) % Plt Count 409 H (150-400) K/uL MPV 10.40 (7.40-12.00) fL Add Manual Diff YES Neutrophils % (Manual) 73 (48.0-80.0) % Band Neutrophils % 1 % Lymphocytes % (Manual) 11 L (16.0-40.0) % Monocytes % (Manual) 11 (0.0-15.0) % Nucleated RBC % 0.0 /100WBC Absolute Seg Neuts 10.8 H (1.4-5.7) Band Neutrophils # 0.1 Lymphocytes # (Manual) 1.6 (0.6-2.4) Monocytes # (Manual) 1.6 H (0.0-0.8) Nucleated RBCs # 0 K/uL Sodium 139 (136-148) mmol/L Potassium 3.8 (3.5-5.1) mmol/L Chloride 102 (98-107) mmol/L Carbon Dioxide 25.6 (21.0-32.0) mmol/L BUN 25 H (7.0-18.0) mg/dL Creatinine 1.4 H (0.8-1.3) mg/dL Est Cr Clr Drug Dosing 57.35 mL/min Estimated GFR (MDRD) 54.6 ml/min Glucose 150 H (74-106) mg/dL Calcium 8.3 L (8.5-10.1) mg/dL Total Bilirubin 0.6 (0.2-1.0) mg/dL AST 37 (15-37) IU/L ALT 62 (14-63) IU/L Alkaline Phosphatase 58 (46-116) U/L Total Protein 7.4 (6.4-8.2) g/dL Albumin 3.0 L (3.4-5.0) g/dL Globulin 4.4 H (2.6-4.0) g/dL Albumin/Globulin Ratio 0.7 L (0.9-1.6) Leo Results Last 24 Hours: Microbiology 08/28/20 18:07 Aerobic Blood Culture - Preliminary Blood - Venous - Lab Draw NO GROWTH AFTER 4 DAYS Anaerobic Blood Culture - Preliminary NO GROWTH AFTER 4 DAYS 08/28/20 17:58 Aerobic Blood Culture - Preliminary Blood - Venous NO GROWTH AFTER 4 DAYS Anaerobic Blood Culture - Preliminary NO GROWTH AFTER 4 DAYS Med Orders - Current: Current Medications Acetaminophen (Tylenol) 650 mg PO Q4H PRN PRN Reason: Pain/Fever Last Admin: 08/29/20 17:16 Dose: 650 mg Documented by: Albuterol/Ipratropium (Combivent Respimat) 0 gm INH BID [facility] Last Admin: 09/02/20 08:03 Dose: 1 puff Documented by: Atenolol (Tenormin) 25 mg PO DAILY [facility] Last Admin: 09/02/20 08:02 Dose: 25 mg Documented by: Azithromycin (Zithromax) 250 mg PO Q24H [facility] Last Admin: 09/01/20 18:23 Dose: 250 mg Documented by: Benzonatate (Tessalon Perles) 100 mg PO TID PRN PRN Reason: Cough Last Admin: 08/29/20 20:03 Dose: 100 mg Documented by: Calcium Carbonate/Glycine (Tums) 500 mg PO TID PRN PRN Reason: Heartburn Last Admin: 09/01/20 12:16 Dose: 500 mg Documented by: Dexamethasone (Dexamethasone) 6 mg PO DAILY@1800 [facility] Last Admin: 09/01/20 18:18 Dose: 6 mg Documented by: Enoxaparin Sodium (Lovenox) 40 mg SUBCUT BID [facility] Last Admin: 09/02/20 08:02 Dose: 40 mg Documented by: Guaifenesin/Codeine Phosphate (Robitussin Ac) 5 ml PO Q6H PRN PRN Reason: Cough Last Admin: 08/29/20 08:14 Dose: 5 ml Documented by: Piperacillin Sod/Tazobactam (Sod 3.375 gm/ Sodium Chloride) 50 mls @ 100 mls/hr IV Q8H [facility] Last Admin: 09/02/20 04:27 Dose: 100 mls/hr Documented by: Loperamide HCl (Imodium) 2 mg PO Q6H PRN PRN Reason: Diarrhea Last Admin: 08/30/20 14:18 Dose: 2 mg Documented by: Discontinued Medications Albuterol/Ipratropium (Combivent Respimat) 0 gm INH Q4H PRN PRN Reason: Dyspnea Azithromycin (Zithromax) 250 mg PO Q24H [facility] Enoxaparin Sodium (Lovenox) 40 mg SUBCUT BID [facility] Furosemide (Lasix) 20 mg IVPUSH NOW ONE Stop: 08/31/20 12:01 Last Admin: 08/31/20 12:56 Dose: 20 mg Documented by: Lactated Ringer's (Ringers, Lactated) 1,000 mls @ 999 mls/hr IV BOLUS ONE Stop: 08/28/20 17:48 Last Admin: 08/28/20 18:04 Dose: 999 mls/hr Documented by: Piperacillin Sod/Tazobactam (Sod 3.375 gm/ Sodium Chloride) 50 mls @ 100 mls/hr IV Q8H [facility] Last Admin: 08/28/20 19:09 Dose: Not Given Documented by: Vancomycin HCl 1.5 gm/ Premix 300 mls @ 300 mls/hr IV ONETIME ONE Stop: 08/28/20 20:14 Last Admin: 08/28/20 20:13 Dose: 300 mls/hr Documented by: Remdesivir 200 mg/ Sodium (Chloride) 250 mls @ 250 mls/hr IV ONETIME ONE Stop: 08/28/20 19:48 Last Admin: 08/28/20 22:18 Dose: 250 mls/hr Documented by: Remdesivir 100 mg/ Sodium (Chloride) 100 mls @ 100 mls/hr IV Q24H [facility] Stop: 09/01/20 18:59 Last Admin: 08/31/20 17:30 Dose: 100 mls/hr Documented by: Azithromycin 500 mg/ Sodium (Chloride) 250 mls @ 250 mls/hr IV ONETIME [facility] Lactated Ringer's (Ringers, Lactated) 1,000 mls @ 999 mls/hr IV .BOLUS ONE Stop: 08/28/20 22:05 Last Admin: 08/28/20 21:44 Dose: 999 mls/hr Documented by: Lactated Ringer's (Ringers, Lactated) 1,000 mls @ 125 mls/hr IV ASDIRECTED [facility] Last Admin: 08/28/20 22:19 Dose: 125 mls/hr Documented by: Vancomycin HCl 1 gm/ Sodium (Chloride) 250 mls @ 166 mls/hr IV Q12H [facility] Last Admin: 08/29/20 20:02 Dose: 166 mls/hr Documented by: Vancomycin HCl 1 gm/ Sodium (Chloride) 250 mls @ 166 mls/hr IV Q8H [facility] Last Admin: 08/31/20 11:15 Dose: 166 mls/hr Documented by: Remdesivir 100 mg/ Sodium (Chloride) 100 mls @ 100 mls/hr IV Q24H [facility] Stop: 09/01/20 18:59 Last Admin: 09/01/20 18:21 Dose: 100 mls/hr Documented by: Vancomycin HCl (Pharmacy To Dose - Vancomycin) 1 dose .XX ASDIRECTED [facility] Sepsis Event Note - Evaluation Sepsis Screening Result: No Definite Risk - Focused Exam Vital Signs: Vital Signs Temp Pulse Pulse Resp BP BP BP 09/02/20 08:02 63 134/89 09/02/20 07:53 97 F 64 16 134/89 09/02/20 04:00 96.7 F L 54 L 18 09/02/20 00:00 96.8 F L 56 L 19 138/79 09/01/20 22:00 97.2 F 59 L 20 132/78 Pulse Ox 09/02/20 08:02 09/02/20 07:53 93 L 09/02/20 04:00 98 09/02/20 00:00 97 09/01/20 22:00 98 - Problem List & Annotations (1) COVID-19 SNOMED Code(s): 441223699 Code(s): U07.1 - COVID-19 Status: Acute Current Visit: Yes (2) Acute respiratory failure with hypoxia SNOMED Code(s): 53723868, 947060681 Code(s): J96.01 - ACUTE RESPIRATORY FAILURE WITH HYPOXIA Status: Acute Current Visit: Yes (3) Hypertension SNOMED Code(s): 38014200 Code(s): I10 - ESSENTIAL (PRIMARY) HYPERTENSION Status: Chronic Current Visit: Yes Qualifiers: Hypertension type: essential hypertension Qualified Code(s): I10 - Essential (primary) hypertension - Problem List Review Problem List Initiated/Reviewed/Updated: Yes - Plan Plan:: 45 y/o M admitted for cough , SOB, found to be COVID positive. 1. COVID 19 - Acute hypoxic respiratory failure, resolved - Currently on 30% FIO2 on 30 L flow on heated high flow NC. Will continue to wean as possible - BC negative - Continue Dexamethasone, has completed Remdesivir as well as 2 units CCP - Continue Combivent - Encourage proning as well as IS and acapella use. 2. HTN: - Continue home medications, Atenolol VTE prophylaxis: Lovenox BID Code Status: Full code Dispo: 2-3 days pending improvement
[2020-09-02] MEDS: Azithromycin 250 MG Tab PO SCH (17:59)
[2020-09-02] MEDS: Dexamethasone 4 MG Tab PO SCH (17:59)
[2020-09-02] MEDS: Codeine/guaiFENesin 10-100 MG/5 ML Syrup 5 ML Cup PO PRN (21:16)
[2020-09-03 06:50] LABS: CARBON DIOXIDE,CO2 22.9 mmol/L (21.0-32.0); POTASSIUM,K 3.8 mmol/L (3.5-5.1)
[2020-09-03] MEDS: Atenolol 25 MG Tab PO SCH (08:43)
[2020-09-03] MEDS: Enoxaparin 40 MG/0.4 ML Syringe SUBCUT SCH (08:44)
[2020-09-03] MEDS: Albuterol/Ipratropium 4 GM Inhalation Spray INH SCH (09:58)
--- NOTE | 2020-09-03 15:44 | PCM.DCSUM1 ---
Discharge Summary - Hospital Course Brief History: 45-year-old M with PMH of HTN, HLD, Asthma comes in from respiratory clinic as a direct admit. Patient states that he started feeling unwell on Wednesday when he developed high fevers at home, he was having some trouble breathing and cough so he went to ER on 08/26, when he was diagnosed with Pneumonia based on xray, COVID was negative, he was sent home on antibiotics, but continued to get worse, he came to the clinic today and was found to be hypoxic during ambulation to low 90s. Per his his sats have been in high 80s sometimes. Work up reveled worsening pneumonia, CXR appeared to be consistent with COVID_19 but the testing was negative. Patients labs reveled he had high WBC count, vitals were significant for fever of 102, his BP was acceptable. Patient also has left hip which he says he sometimes gets due to "arthritis" but was unable to tell me which type of arthritis. The patient was tested for Covid and the test turned out negative. Patient was admitted for further management. 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 Diagnosis: Stroke: No - Discharge Data Discharge Date: 09/03/20 Discharge Disposition: Home, Self-Care 01 Condition: Good - Referral to Home Health Primary Care Physician: PCP None - Discharge Diagnosis/Problem(s) (1) COVID-19 SNOMED Code(s): 937135813 ICD Code: U07.1 - COVID-19 Status: Acute (2) Acute respiratory failure with hypoxia SNOMED Code(s): 71340385, 571056023 ICD Code: J96.01 - ACUTE RESPIRATORY FAILURE WITH HYPOXIA Status: Acute (3) Hypertension SNOMED Code(s): 34711355 ICD Code: I10 - ESSENTIAL (PRIMARY) HYPERTENSION Status: Chronic Qualifiers: Hypertension type: essential hypertension Qualified Code(s): I10 - Essential (primary) hypertension - Patient Summary/Data Hospital Course: Admitting diagnoses Hypoxic respiratory failure COVID-19 Discharge diagnosis Hypoxic respiratory failure [id number] Lorna was admitted secondary to respiratory failure and COVID-19 pneumonia. He was treated with remdesivir, dexamethasone and convalescent plasma. He initi ally was not needing oxygen but hypoxia soon followed. He was placed on nasal cannula and eventually placed on Vapotherm heated high flow nasal cannula. Over the next few days, he slowly improved he has completed remdesivir 5-day course as well as convalescent plasma 2 units. He has completed 6 days of dexamethasone. He was treated with Lovenox 40 mg twice daily. He was covered for possible bacterial pneumonia with azithromycin and Zosyn. He has remained afebrile and has steadily improved he has done well at self proning. This morning he is on room air satting 95% at rest and 91 to 93% with activity on room air. He will be discharged home with dexamethasone for 4 more days as well as aspirin daily for 1 month and Combivent inhaler as needed. He is to follow- up with PCP in 7 to 10 days. He was counseled on monitoring symptoms such as fever chills chest pain shortness of breath and to return to the ER or clinic if concerns of these return. All questions and concerns addressed. - Patient Instructions Diet: Heart Healthy Diet Activity: No Strenuous Activities, Rest and Relax Today Showering/Bathing: May Shower Notify Provider of: Fever, Increased Pain, Swelling and Redness, Drainage, Nausea and/or Vomiting Other/Special Instructions: Monitor oxygen saturations at home. Monitor for return of fever, chills, cough, shortness of breath. Quarantine until September 16, 20 days due to severity of illness and admission in hospital. - Discharge Plan *PRESCRIPTION DRUG MONITORING PROGRAM REVIEWED*: Not Applicable *COPY OF PRESCRIPTION DRUG MONITORING REPORT IN PATIENT ALFREDO: Not Applicable Prescriptions/Med Rec: Aspirin 81 mg PO DAILY #30 tab.chew dexAMETHasone [Dexamethasone] 6 mg PO DAILY 4 Days #6 tablet Home Medications: Home Meds atenoloL [Atenolol] 25 mg PO DAILY 10/15/17 [History] Losartan [Cozaar] 50 mg PO DAILY 08/31/20 [History] Rosuvastatin Calcium 20 mg PO BEDTIME 08/31/20 [History] Albuterol/Ipratropium [Combivent Respimat] 1 puff INH BID #1 inhaler 09/03/20 [Rx] Aspirin 81 mg PO DAILY #30 tab.chew 09/03/20 [Rx] dexAMETHasone [Dexamethasone] 6 mg PO DAILY 4 Days #6 tablet 09/03/20 [Rx] Oxygen Therapy Mode: Room Air Patient Handouts: COVID-19 Frequently Asked Questions, COVID-19, COVID-19: How to Protect Yourself and Others - CDC, Aspirin, ASA oral tablets, Coronavirus Information 12/04/19, Dexamethasone tablets, Prevent the Spread of COVID-19 if You Are Sick - [facility] Referrals: Angeles Umana PA [Physician [employer]] - 09/16/20 3:15 pm - Discharge Summary/Plan Comment DC Time >30 min.: No - Patient Data Vitals - Most Recent: Last Vital Signs Temp 97.5 F 09/03/20 08:34 Pulse 63 09/03/20 08:43 Resp 16 09/03/20 08:34 BP 132/82 09/03/20 08:43 Pulse Ox 95 09/03/20 08:34 Weight - Most Recent: 75.1 kg I&O - Last 24 hours: Intake & Output 09/03/20 09/03/20 09/03/20 06:59 14:59 22:59 Intake Total 590 Output Total 800 Balance -210 Lab Results - Last 24 hrs: Laboratory Results - last 24 hr 09/03/20 09/03/20 Range/Units 06:00 06:00 WBC 15.31 H (4.0-11.0) K/uL RBC 4.81 (4.50-5.90) M/uL Hgb 13.7 (13.0-17.0) g/dL Hct 40.6 (38.0-50.0) % MCV 84.4 (80.0-98.0) fL MCH 28.5 (27.0-32.0) pg MCHC 33.7 (31.0-37.0) g/dL RDW Std Deviation 38.8 (28.0-62.0) fl RDW Coeff of Antonietta 13 (11.0-15.0) % Plt Count 432 H (150-400) K/uL MPV 10.30 (7.40-12.00) fL Add Manual Diff YES Neutrophils % (Manual) 82 H (48.0-80.0) % Band Neutrophils % 1 % Lymphocytes % (Manual) 10 L (16.0-40.0) % Monocytes % (Manual) 6 (0.0-15.0) % Myelocytes % 1 % Nucleated RBC % 0.0 /100WBC Absolute Seg Neuts 12.6 H (1.4-5.7) Band Neutrophils # 0.2 Lymphocytes # (Manual) 1.5 (0.6-2.4) Monocytes # (Manual) 0.9 H (0.0-0.8) Absolute Myelocytes 0.2 Nucleated RBCs # 0 K/uL Sodium 137 (136-148) mmol/L Potassium 3.8 (3.5-5.1) mmol/L Chloride 101 (98-107) mmol/L Carbon Dioxide 22.9 (21.0-32.0) mmol/L BUN 31 H (7.0-18.0) mg/dL Creatinine 1.4 H (0.8-1.3) mg/dL Est Cr Clr Drug Dosing 57.35 mL/min Estimated GFR (MDRD) 54.6 ml/min Glucose 156 H (74-106) mg/dL Calcium 8.8 (8.5-10.1) mg/dL Total Bilirubin 0.6 (0.2-1.0) mg/dL AST 37 (15-37) IU/L ALT 59 (14-63) IU/L Alkaline Phosphatase 53 (46-116) U/L Total Protein 7.4 (6.4-8.2) g/dL Albumin 3.0 L (3.4-5.0) g/dL Globulin 4.4 H (2.6-4.0) g/dL Albumin/Globulin Ratio 0.7 L (0.9-1.6) ERIC Results - Last 24 hrs: Microbiology 08/28/20 18:07 Aerobic Blood Culture - Final Blood - Venous - Lab Draw NO GROWTH AFTER 5 DAYS Anaerobic Blood Culture - Final NO GROWTH AFTER 5 DAYS 08/28/20 17:58 Aerobic Blood Culture - Final Blood - Venous NO GROWTH AFTER 5 DAYS Anaerobic Blood Culture - Final NO GROWTH AFTER 5 DAYS Med Orders - Current: Current Medications Discontinued Medications Acetaminophen (Tylenol) 650 mg PO Q4H PRN PRN Reason: Pain/Fever Last Admin: 08/29/20 17:16 Dose: 650 mg Documented by: Albuterol/Ipratropium (Combivent Respimat) 0 gm INH BID [facility] Last Admin: 09/03/20 09:58 Dose: 1 puff Documented by: Albuterol/Ipratropium (Combivent Respimat) 0 gm INH Q4H PRN PRN Reason: Dyspnea Atenolol (Tenormin) 25 mg PO DAILY [facility] Last Admin: 09/03/20 08:43 Dose: 25 mg Documented by: Azithromycin (Zithromax) 250 mg PO Q24H [facility] Stop: 09/03/20 00:00 Last Admin: 09/02/20 17:59 Dose: 250 mg Documented by: Azithromycin (Zithromax) 250 mg PO Q24H [facility] Benzonatate (Tessalon Perles) 100 mg PO TID PRN PRN Reason: Cough Last Admin: 08/29/20 20:03 Dose: 100 mg Documented by: Calcium Carbonate/Glycine (Tums) 500 mg PO TID PRN PRN Reason: Heartburn Last Admin: 09/01/20 12:16 Dose: 500 mg Documented by: Dexamethasone (Dexamethasone) 6 mg PO DAILY@1800 [facility] Last Admin: 09/02/20 17:59 Dose: 6 mg Documented by: Enoxaparin Sodium (Lovenox) 40 mg SUBCUT BID [facility] Enoxaparin Sodium (Lovenox) 40 mg SUBCUT BID [facility] Last Admin: 09/03/20 08:44 Dose: 40 mg Documented by: Furosemide (Lasix) 20 mg IVPUSH NOW ONE Stop: 08/31/20 12:01 Last Admin: 08/31/20 12:56 Dose: 20 mg Documented by: Guaifenesin/Codeine Phosphate (Robitussin Ac) 5 ml PO Q6H PRN PRN Reason: Cough Last Admin: 09/02/20 21:16 Dose: 5 ml Documented by: Lactated Ringer's (Ringers, Lactated) 1,000 mls @ 999 mls/hr IV BOLUS ONE Stop: 08/28/20 17:48 Last Admin: 08/28/20 18:04 Dose: 999 mls/hr Documented by: Piperacillin Sod/Tazobactam (Sod 3.375 gm/ Sodium Chloride) 50 mls @ 100 mls/hr IV Q8H [facility] Last Admin: 08/28/20 19:09 Dose: Not Given Documented by: Piperacillin Sod/Tazobactam (Sod 3.375 gm/ Sodium Chloride) 50 mls @ 100 mls/hr IV Q8H [facility] Last Admin: 09/02/20 04:27 Dose: 100 mls/hr Documented by: Vancomycin HCl 1.5 gm/ Premix 300 mls @ 300 mls/hr IV ONETIME ONE Stop: 08/28/20 20:14 Last Admin: 08/28/20 20:13 Dose: 300 mls/hr Documented by: Remdesivir 200 mg/ Sodium (Chloride) 250 mls @ 250 mls/hr IV ONETIME ONE Stop: 08/28/20 19:48 Last Admin: 08/28/20 22:18 Dose: 250 mls/hr Documented by: Remdesivir 100 mg/ Sodium (Chloride) 100 mls @ 100 mls/hr IV Q24H [facility] Stop: 09/01/20 18:59 Last Admin: 08/31/20 17:30 Dose: 100 mls/hr Documented by: Azithromycin 500 mg/ Sodium (Chloride) 250 mls @ 250 mls/hr IV ONETIME [facility] Lactated Ringer's (Ringers, Lactated) 1,000 mls @ 999 mls/hr IV .BOLUS ONE Stop: 08/28/20 22:05 Last Admin: 08/28/20 21:44 Dose: 999 mls/hr Documented by: Lactated Ringer's (Ringers, Lactated) 1,000 mls @ 125 mls/hr IV ASDIRECTED [facility] Last Admin: 08/28/20 22:19 Dose: 125 mls/hr Documented by: Vancomycin HCl 1 gm/ Sodium (Chloride) 250 mls @ 166 mls/hr IV Q12H [facility] Last Admin: 08/29/20 20:02 Dose: 166 mls/hr Documented by: Vancomycin HCl 1 gm/ Sodium (Chloride) 250 mls @ 166 mls/hr IV Q8H [facility] Last Admin: 08/31/20 11:15 Dose: 166 mls/hr Documented by: Remdesivir 100 mg/ Sodium (Chloride) 100 mls @ 100 mls/hr IV Q24H [facility] Stop: 09/01/20 18:59 Last Admin: 09/01/20 18:21 Dose: 100 mls/hr Documented by: Loperamide HCl (Imodium) 2 mg PO Q6H PRN PRN Reason: Diarrhea Last Admin: 08/30/20 14:18 Dose: 2 mg Documented by: Vancomycin HCl (Pharmacy To Dose - Vancomycin) 1 dose .XX ASDIRECTED [facility] - Exam Quality Assessment: Reports: DVT Prophylaxis. Denies: Supplemental Oxygen General: Reports: Alert, Oriented, Cooperative, No Acute Distress Lungs: Reports: Clear to Auscultation, Normal Respiratory Effort Cardiovascular: Reports: Regular Rate, Regular Rhythm GI/Abdominal Exam: Normal Bowel Sounds, Soft, Non-Tender Extremities: Normal Inspection, Normal Range of Motion, Non-Tender, No Pedal Edema Neurological: Reports: No New Focal Deficit Psy/Mental Status: Reports: Alert, Normal Affect, Normal Mood
== END 2020-09-03 12:10 | disposition home or self-care (01) | DRG 137 ==
LOC: MW.CHFP 14:12 → MW.MS 16:22 → OBSVTOIN 08-30 09:22
PROVIDERS: ADMIT Student in an Organized Health Care Education/Training Program; ATTEND Student in an Organized Health Care Education/Training Program
PROC: XW033E5 Introduction of Remdesivir Anti-infective into Peripheral Vein, Percutaneous Approach, New Technology Group 5 (ICD-10-PCS; principal; 2020-08-30)
PROC: XW13325 Transfusion of Convalescent Plasma (Nonautologous) into Peripheral Vein, Percutaneous Approach, New Technology Group 5 (ICD-10-PCS; 2020-08-30)
DX: U07.1 COVID-19 (principal); J12.89 Other viral pneumonia; J96.01 Acute respiratory failure with hypoxia; J15.9 Unspecified bacterial pneumonia; I10 Essential (primary) hypertension; E78.5 Hyperlipidemia, unspecified; J45.909 Unspecified asthma, uncomplicated; H54.7 Unspecified visual loss; E78.00 Pure hypercholesterolemia, unspecified; M19.90 Unspecified osteoarthritis, unspecified site; M10.9 Gout, unspecified; Z79.82 Long term (current) use of aspirin; Z79.899 Other long term (current) drug therapy; Z98.890 Other specified postprocedural states
CPT/HCPCS: 0240U; 36415; 36430; 71045; 71045-26; 80048; 80053; 80202; 83605; 85025; 85379; 86850; 86900; 86901; 87040; 94640; 94667; 96365; 96366; 96367; 96372; 96376; A9270-GY; G0378; G0379; J1650; J1940; J2543; J3370; J7050; J7120; J8540; P9017; U0002

== ENCOUNTER 2021-03-17 00:37 | Emergency (ER) | payer BC ==
[2021-03-17 01:43] LABS: BLOOD UREA NITROGEN,BUN 16 mg/dL (7.0-18.0); CARBON DIOXIDE,CO2 26.5 mmol/L (21.0-32.0); CHLORIDE,CL 104 mmol/L (98-107); GLUCOSE RANDOM 115 mg/dL (74-106); POTASSIUM,K 4.2 mmol/L (3.5-5.1); SODIUM,NA 140 mmol/L (136-148)
[2021-03-17] MEDS ORDERED: HYDROmorphone 2 MG/ML Syringe IVPUSH ONE (02:08)
--- NOTE | 2021-03-17 02:48 | CR ---
HISTORY: Dizziness COMPARISON: 10/01/2020 FINDINGS: A portable erect AP view of the chest was obtained at 0128 hours. The lungs remain clear. No focal or diffuse infiltrates are present. The heart remains normal in size. The mediastinum is normal in appearance. The osseous structures are normal in appearance for the patient`s age. IMPRESSION: Normal portable chest single view. Dictated by Donato Hickman MD @ 03/17/2021 2:47:[address] Donato Hickman @ Mar 17 2021 2:47AM
--- NOTE | 2021-03-17 05:50 | EDM.PDOC ---
ED HPI GENERAL MEDICAL PROBLEM - General Chief Complaint: Cardiovascular Problem Stated Complaint: IRREGULAR HEART BEAT Time Seen by Provider: 03/17/21 00:52 - History of Present Illness INITIAL COMMENTS - FREE TEXT/NARRATIVE: CHIEF COMPLAINT(S): "I feel like my heart is stopping." HISTORY OF PRESENT ILLNESS: This is a 45-year-old man with a past medical history of hypertension, hyperlipidemia and prior history of similar episodes who comes to the emergency department with a chief complaint of "I feel like my heart is stopping." The patient states that last night he felt like his heart was stopping and then it resolved. His who is in presents stated that they last approximately 30 minutes. He comes to the emergency department his evening because he is having another episode. The patient denies any chest pain, diaphoresis, dizziness, nausea, vomiting, syncope, recent travel, recent surgery, prior history of DVT or PE. The patient is and patient stated that he had similar episodes in the [facility] approximately 15 years ago and then in the [place] for which she was evaluated by cardiology and was told to stop drinking caffeine. He states that after he stopped drinking caffeine the symptoms resolved. He states that currently he is drinking a lot of caffeine and drinks it throughout the day and night. This includes coffee, tea, energy drinks. REVIEW OF SYSTEMS: Constitutional: Denies fever, chills. Eyes: Denies eye pain Ears, Nose, Mouth, & Throat: Denies earache Cardiovascular: Positive for sensation of missed beat/heart stopping.Denies chest pain Respiratory: Denies shortness of breath Gastrointestinal: Denies Nausea, vomiting, diarrhea, hematochezia. Genitourinary: Denies hematuria Skin:Denies a rash MSK: Denies joint pain Neurological: Denies blurred vision Psychiatric: Denies depression PAST MEDICAL HISTORY: As per history of present illness and as reviewed below otherwise noncontributory. SURGICAL HISTORY: As per history of present illness and as reviewed below otherwise noncontributory. SOCIAL HISTORY: As per history of present illness and as reviewed below otherwise noncontributory. FAMILY HISTORY: As per history of present illness and as reviewed below otherwise noncontributory. EXAMINATION OF ORGAN SYSTEMS/BODY AREAS: Constitutional: Heart rate of 54, respiratory rate 18 with an oxygen saturation of 96% on room air. Temperature 36.1. Blood pressure was 167/104 General: Well-appearing man who is in no acute distress Psychiatric: Appropriate mood and affect. Eyes: No scleral icterus or conjunctival erythema ENMT: Moist mucous membranes. No pharyngeal erythema Cardiovascular: Regular, rate, and rhythm. No gallops, murmurs, or rubs. Bilateral upper extremity pulses symmetric and intact. No peripheral edema. No JVD. Respiratory: Lungs clear to auscultation bilaterally. No wheezes, rales, or rhonchi. Gastrointestinal: Soft, non-tender, non-distended. Normoactive bowel sounds Genitourinary: No suprapubic tenderness Musculoskeletal: Normal range of motion. Skin: No lesions or abrasions. Neurological: Alert, GCS 15 MEDICAL DECISION MAKING AND COURSE IN THE ED WITH INTERPRETATION/REVIEW OF DIAGNOSTIC STUDIES: This is a 45-year-old man and with a past medical history of hypertension hyperlipidemia who comes to the emergency department with sensation of his heart stopping who is mildly bradycardic, hypertensive but overall appears well. By the time of my evaluation the patient's heart rate was normal and was in sinus rhythm. Initial EKG was obtained which did reveal sinus rhythm mixed with PVCs without any obvious ST elevation or signs of ischemia. Will obtain a cardiac work-up and place the patient on cardiac monitoring and pulse oximetry. At this time differential does include ACS, electrolyte abnormality, infection. Given the patient converted to sinus rhythm without any PVCs I do believe this is intermittent and likely secondary to caffeine use however we will rule out life-threatening causes first. Laboratory: CBC is unremarkable. BMP is unremarkable. Magnesium is normal. Troponin is negative. TSH is normal at 1.05. Time: 0044 Twelve-lead EKG interpreted by myself. Normal sinus rhythm at a rate of 100beats per minute. Normal axis. SC interval appears to be normal QRS duration is [address] segments are normal without elevations or depressions. There are paired PVCs. No Q waves present. Hypertrophy not noted. PVCs are new from prior EKG dated 08/26/2020 . Interpretation: Sinus rhythm with paired PVCs Time: 010 Twelve-lead EKG interpreted by myself. Normal sinus rhythm at a rate of 73beats per minute. Normal axis. SC interval is 160ms. QRS duration is [address] segments are normal without elevations or depressions. No T wave inversions no Q waves present. Hypertrophy not noted. No changes demonstrated from prior EKG dated 08/26/2000. Interpretation: Sinus rhythm Patient was observed and he did not have any further episodes of PVCs. We will wait for repeat troponin. Laboratory: Repeat troponin was negative. On reevaluation after repeat troponin while in the room the patient did have PVCs occasionally. At this time I did discuss discharge and follow-up for ob servation admission. I also discussed obtaining consultation with cardiology. At this time they were amenable to cardiology consultation. I do believe the patient's PVCs are likely secondary to the caffeine use. Although the PVCs are frequent there does not appear to be any PVCs with R-on-T phenomenon. However there is some pauses after the PVCs and then it returns to sinus rhythm. I contacted [facility] in [place] and spoke with Dr. Landeros who recommended observation in the emergency department to evaluate for more frequent PVCs or longer pauses. The patient is stable and his vitals remained stable that the patient can be discharged with a Holter monitor. I did discuss Zio patch. He stated this would be fine however the patient does need to follow-up with cardiology. I did discuss this with the patient he was amenable to this plan. Given the time we will wait till approximately 6 AM to obtain Zio patch. On my reevaluation the patient was in normal sinus rhythm without any further PVCs. We did obtain an EKG prior to my reevaluation. Time: 0450 Twelve-lead EKG interpreted by myself. Normal sinus rhythm at a rate of 71beats per minute. Normal axis. SC interval is 154ms. QRS duration is 91ms. ST segments are normal without elevations or depressions. No T wave inversions no Q waves present. Hypertrophy not noted. There is a PVC every third beat interpretation: Ventricular trigeminy After my evaluation the patient continued to be in normal sinus rhythm with rare PVCs. DISPOSITION: The patient was discharged home in stable condition. The patient will follow up with cardiology and his pcp within the next 1-2 weeks CONDITION: fair PROCEDURES: None FINAL IMPRESSION(S)/DIAGNOSES: 1. Acute intermittent palpitation secondary to PVCs Doug Hairston M.D. - Related Data Allergies Allergy/AdvReac Type Severity Reaction Status Date / Time No Known Allergies Allergy Verified 03/17/21 00:44 Home Meds: Home Meds atenoloL [Atenolol] 25 mg PO DAILY 10/15/17 [History] Losartan [Cozaar] 50 mg PO DAILY 08/31/20 [History] Rosuvastatin Calcium 20 mg PO BEDTIME 08/31/20 [History] Albuterol/Ipratropium [Combivent Respimat] 1 puff INH BID #1 inhaler 09/03/20 [Rx] Aspirin 81 mg PO DAILY #30 tab.chew 09/03/20 [Rx] Past Medical History HEENT History: Reports: Impaired Vision, Sinusitis Cardiovascular History: Reports: High Cholesterol, Hypertension Respiratory History: Reports: Asthma Other Respiratory History: Asthma as a child. Musculoskeletal History: Reports: Arthritis, Gout Dermatologic History: Reports: None - Infectious Disease History Infectious Disease History: Reports: Chicken Pox, Influenza, Measles, Mumps, TB - Past Surgical History HEENT Surgical History: Reports: Other (See Below) Other HEENT Surgeries/Procedures: Right eye surgery GI Surgical History: Reports: None Endocrine Surgical History: Reports: None Neurological Surgical History: Reports: None Social & Family History - Family History Family Medical History: No Pertinent Family History - Tobacco Use Tobacco Use Status *Q: Never Tobacco User - Caffeine Use Caffeine Use: Reports: Coffee, Soda - Recreational Drug Use Recreational Drug Use: No ED ROS GENERAL - Review of Systems Review Of Systems: See Below ED EXAM, GENERAL - Physical Exam Exam: See Below Course - Vital Signs Last Recorded V/S: Last Vital Signs Temp 36.1 C 03/17/21 00:44 Pulse 64 03/17/21 07:04 Resp 18 03/17/21 07:04 BP 135/94 H 03/17/21 07:04 Pulse Ox 97 03/17/21 07:04 - Orders/Labs/Meds Labs: Laboratory Tests 03/17/21 03/17/21 03/17/21 Range/Units 00:45 00:45 04:00 WBC 8.01 (4.0-11.0) K/uL RBC 4.90 (4.50-5.90) M/uL Hgb 13.9 (13.0-17.0) g/dL Hct 40.5 (38.0-50.0) % MCV 82.7 (80.0-98.0) fL MCH 28.4 (27.0-32.0) pg MCHC 34.3 (31.0-37.0) g/dL RDW Std Deviation 37.4 (28.0-62.0) fl RDW Coeff of Antonietta 12 (11.0-15.0) % Plt Count 259 (150-400) K/uL MPV 10.00 (7.40-12.00) fL Neut % (Auto) 51.1 (48.0-80.0) % Lymph % (Auto) 35.5 (16.0-40.0) % [place] % (Auto) 11.0 (0.0-15.0) % Eos % (Auto) 1.9 (0.0-7.0) % Baso % (Auto) 0.5 (0.0-1.5) % Neut # (Auto) 4.1 (1.4-5.7) K/uL Lymph # (Auto) 2.8 H (0.6-2.4) K/uL [place] # (Auto) 0.9 H (0.0-0.8) K/uL Eos # (Auto) 0.2 (0.0-0.7) K/uL Baso # (Auto) 0.0 (0.0-0.1) K/uL Sodium 140 (136-148) mmol/L Potassium 4.2 (3.5-5.1) mmol/L Chloride 104 (98-107) mmol/L Carbon Dioxide 26.5 (21.0-32.0) mmol/L BUN 16 (7.0-18.0) mg/dL Creatinine 1.2 (0.8-1.3) mg/dL Est Cr Clr Drug Dosing 64.15 mL/min Estimated GFR (MDRD) > 60.0 ml/min Glucose 115 H (74-106) mg/dL Calcium 8.8 (8.5-10.1) mg/dL Magnesium 2.1 (1.8-2.4) mg/dL Troponin I < 0.050 < 0.050 (0.000-0.056) ng/mL TSH 3rd Generation 1.05 (0.36-3.74) uIU/mL Departure - Departure Time of Disposition: 06:26 Disposition: Home, Self-Care 01 Condition: Fair Clinical Impression: PVC (premature ventricular contraction) Instructions: Premature Ventricular Contraction Referrals: Gregorio Lozano MD [Primary Care Provider] - Caitlyn Rosenbaum MD [Physician] - Forms: ED Department Discharge Additional Instructions: You were evaluated today on an emergent basis. At this time your work-up was negative. I did discuss with you that you do have some PVCs which are called premature ventricular contractions. These can be normal. Given that you have had these in the past and that prior forensic pathologist have recommended that she did not drink or use caffeine I would recommend that you stop this. I did discuss this case with cardiology and they recommended that we observe you here in the emergency department and then send you home with a Zio patch and follow-up in their clinic. As always if you have any worsening symptoms such as you feel they are happening more frequently, you feel dizzy you started to have chest pain, shortness of breath or pass out I would like you to return to the emergency department. Please follow-up with your primary care physician within 3 to 5 days. Please call the forensic pathologist at the number below to make an appointment. [facility] - Primary [facility] [address] [place] [address] [place] [address] The patient is informed of any results of their evaluation and diagnostic workup and all questions are answered. They are given discharge instructions and return precautions. The patient is stable for discharge. The patient states they understand and agree with the plan and that they will return if their symptoms get worse or if they have any new concerns. The following information is given to patients seen in the emergency department who are being discharged to home. This information is to outline your options for follow-up care. We provide all patients seen in our emergency department with a follow-up referral. The need for follow-up, as well as the timing and circumstances, are variable depending upon the specifics of your emergency department visit. If you don't have a primary care physician on staff, we will provide you with a referral. We always advise you to contact your personal physician following an emergency department visit to inform them of the circumstance of the visit and for follow-up with them and/or the need for any referrals to a consulting specialist. The emergency department will also refer you to a specialist when appropriate. This referral assures that you have the opportunity for follow-up care with a specialist. All of these measure are taken in an effort to provide you with optimal care, which includes your follow-up. Under all circumstances we always encourage you to contact your private physician who remains a resource for coordinating your care. When calling for follow-up care, please make the office aware that this follow-up is from your recent emergency room visit. If for any reason you are refused follow-up, please contact the [facility] Emergency Department at and asked to speak to the emergency department charge nurse. Sepsis Event Note (ED) - Evaluation Sepsis Screening Result: No Definite Risk
== END 2021-03-17 07:05 | disposition home or self-care (01) ==
LOC: MW.ED 00:37
DX: I49.3 Ventricular premature depolarization (principal); E78.00 Pure hypercholesterolemia, unspecified; I10 Essential (primary) hypertension; J45.909 Unspecified asthma, uncomplicated; M10.9 Gout, unspecified; Z79.82 Long term (current) use of aspirin; Z79.899 Other long term (current) drug therapy
CPT/HCPCS: 36415; 71045; 71045-26; 80048; 83735; 84443; 84484; 85025; 93005; 93010; 99284; 99285-25